=== PATIENT | female | born 1975 | race Caucasian/White ===

== ENCOUNTER 2016-12-19 18:06 | Emergency (ER) | payer SELFPAY ==
[~2016-12-19] VITALS: Ht 170.2 cm; Wt 82.0 kg
[~2016-12-19 18:06] MED LIST: DIAZ5 PO; DICY1TAB26 PO; DOXY100T PO; SULF1TAB47 PO; TRAM50 PO; Z.0.NO CURRENT MEDS; ZOFR4TAB3 PO
[2016-12-19 18:08] VITALS: BP 133/75; PULSE 60; RESP 20; TEMP 98.5; O2SAT 97
--- NOTE | 2016-12-19 19:22 | PD ---
Physical Exam Time Seen by Provider: 19:20 Narrative 41 y/o female w/ left flank pain, nauseas, dizziness, lightheadedness for one week. Urinary "pressure" endorsed as well. vss Seen at triage desk. Awaiting bed placement. Data Data Last Documented VS Vital Signs Date Time Temp Pulse Resp B/P Pulse Ox O2 Delivery O2 Flow Rate FiO2 12/19/16 18:08 98.5 60 20 133/75 97 Room Air [facility] Medical Record Reviewed: Yes Supervised Visit with SHAUN: No Joe Neal December 19, 2016 19:22
[2016-12-19 20:14] LABS: BACTERIA, URINE OCC /hpf; BLOOD, URINE NEG (NEG); GLUCOSE,URINE NEG (NEG); KETONE, URINE NEG (NEG); MUCUS URINE FEW /lpf (OCC); NITRITE,URINE NEG (NEG); PH, URINE 6.5 (5.0-8.5); SQUAMOUS EPITHELIAL CELL URINE 1 /hpf (0-5); URINE COLOR YELLOW (YELLW/STRAW)
[2016-12-19 20:17] LABS: COMMENT (UR) CULT NOT INDICATED; CULTURE IF INDICATED CULT NOT INDICATED
== END 2016-12-19 21:00 | disposition left against medical advice (07) ==
LOC: NED 18:06
DX: R10.9 Unspecified abdominal pain (principal); Z53.21 Procedure and treatment not carried out due to patient leaving prior to being seen by health care provider; R42 Dizziness and giddiness
CPT/HCPCS: 81001; 84703; 99283

== ENCOUNTER 2017-03-29 18:41 | Emergency (ER) | payer SELFPAY ==
[~2017-03-29] VITALS: Ht 165.1 cm; Wt 75.0 kg
[2017-03-29 18:42] VITALS: BP 174/78; PULSE 70; RESP 20; TEMP 98.7; O2SAT 100
--- NOTE | 2017-03-29 18:49 | PD ---
Physical Exam Date Seen by Provider: Mar 29, 2017 Time Seen by Provider: 18:48 Narrative 41 yo female here for possible bite to left leg. Going on since monday. Getting bigger and swelling. No injuries. Pain is mild. Vitals are stable in triage. Awaiting Bed placement. Data Data Last Documented VS Vital Signs Date Time Temp Pulse Resp B/P Pulse Ox O2 Delivery O2 Flow Rate FiO2 03/29/17 18:42 98.7 70 20 174/78 100 Room Air [facility] Medical Record Reviewed: Yes Supervised Visit with SHAUN: Cheo Neumann Mar 29, 2017 18:49
[2017-03-29] MEDS ORDERED: BACT800T5 PO (19:50)
--- NOTE | 2017-03-29 19:55 | PD ---
HPI Chief Complaint: Bite or Sting Time Seen by Provider: 19:52 Travel History International Travel<30 days: No Contact w/Intl Traveler<30days: No Traveled to known affect area: No History of Present Illness HPI 41-year-old white female presents with a area of redness and tenderness to the left anterior thigh over the last few days. It has become increasingly red and tender. No drainage. She denies any history of abscess in the past. She states that she's not sure whether this could've been an insect bite. She is taken some Benadryl for some itching. She denies any fever or chills. No nausea vomiting. She does note that she feels like her leg is somewhat swollen. Pain is mild. No alleviating factor PFSH Past Medical History Cardiovascular Problems: Yes ([place] X 1 2000) High Cholesterol: Yes Diminished Hearing: No Hypertension: Yes (NON TREATED) Immunizations Current: Yes Myocardial Infarction: Yes (8 YEARS AGO) ?: Not : 3 Para: 2 : 1 Ovarian Cysts: Yes Tubal Ligation: Yes Past Surgical History Section: Yes Gynecologic Surgery: Yes Social History Alcohol Use: Yes (WINE ON WEEKENDS) Tobacco Use: No Substance Use: Yes (POT) Allergies-Medications (Allergen,Severity, Reaction): Coded Allergies: Codeine (Verified Adverse Reaction, Mild, VOMITING, 03/29/17) THE PT TOLERATES LORTAB Dilaudid (Verified Adverse Reaction, Mild, VOMITING, 03/29/17) Reported Meds & Prescriptions Reported Meds & Active Scripts Active Bactrim DS (Sulfamethoxazole-Trimethoprim) 800-160 Mg Tab 1 Tab PO BID Review of Systems Except as stated in HPI: all other systems reviewed are Neg Physical Exam Narrative GENERAL: This is a well-nourished, well-developed patient, in no apparent distress. SKIN: The patient has a 1.5 1.5 cm area of erythema to the mid anterior left thigh. There is no fluctuance or pointing. HEAD: Atraumatic. Normocephalic. EYES: PERRL, EOMI, no discharge or injection. No scleral icterus. EARS: Clear NOSE: Nasal turbinates appear normal. THROAT: Mucosa pink and moist. Airway patent. NECK: Trachea midline. supple, moves head freely. LUNGS: Clear to auscultation. CV: Regular in rhythm. ABDOMEN: Soft nontender. EXT: No clubbing cyanosis or edema. Data Data Last Documented VS Vital Signs Date Time Temp Pulse Resp B/P Pulse Ox O2 Delivery O2 Flow Rate FiO2 03/29/17 18:42 98.7 70 20 174/78 100 Room Air Orders Tetanus/Diphtheria Tox Adult (Tetanus/Di (03/29/17 20:00) Sulfamet-Trimeth Ds 800-160 Mg (Bactrim (03/29/17 20:00) Diphenhydramine (Benadryl) (03/29/17 20:00) MDM Medical Decision Making Medical Screen Exam Complete: Yes Emergency Medical Condition: Yes Medical Record Reviewed: Yes Differential Diagnosis MDM: High Differential diagnoses: Abscess, folliculitis, cellulitis, lymphangitis, abrasion, contact dermatitis Narrative Course Patient is given Bactrim DS and Benadryl 50 mg by mouth. Tetanus immunization updated. This is left leg insect bite infection Diagnosis Primary Impression: Insect bite of left lower leg with infection Patient Instructions: General Instructions Departure Forms: Tests/Procedures, Work Release Special Instructions: No work 2 days. Additional Instructions: Rest. Elevation. keep clean and dry. Warm compresses. Benadryl 50 mg 4 times a day. Daily wound care with soap, water and Neosporin. Three Advil every 6 hours. Bactrim DS. Follow-up with a primary care doctor in one week. Return to the ER for any problems. Med/Other Pt SpecificInfo: Prescription(s) given, Wound Care Scripts Sulfamethoxazole-Trimethoprim (Bactrim DS)800-160 Mg Tab1 Tab PO BID #20 TAB Prov:Alex Solis MD 03/29/17 Disposition: 01 DISCHARGE HOME Condition: Stable Akash España Mar 29, 2017 19:55
[2017-03-29] MEDS ORDERED: diphenhydrAMINE HCL 50 MG CAP PO ONE (20:00)
[2017-03-29] MEDS ORDERED: TETANUS/DIPHTHERIA TOXOID ADULT 0.5 ML VIAL IM ONE (20:00)
[2017-03-29] MEDS ORDERED: SULFAMETHOXAZOLE-TRIMETHOPRIM DS 800-160 MG TAB PO ONE (20:00)
== END 2017-03-29 20:28 | disposition home or self-care (01) ==
LOC: NEPK 18:41
DX: S80.862A Insect bite (nonvenomous), left lower leg, initial encounter (principal); W57.XXXA Bitten or stung by nonvenomous insect and other nonvenomous arthropods, initial encounter; I25.2 Old myocardial infarction; I10 Essential (primary) hypertension; E78.00 Pure hypercholesterolemia, unspecified
CPT/HCPCS: 90471; 90714; 99283; Q0163

== ENCOUNTER 2017-07-21 18:31 | Emergency (ER) | payer SELFPAY ==
[~2017-07-21] VITALS: Ht 170.2 cm; Wt 79.5 kg
[~2017-07-21 18:31] MED LIST changes: +BACT800T5 PO; -DIAZ5 PO; -DICY1TAB26 PO; -DOXY100T PO; -SULF1TAB47 PO; -TRAM50 PO; -Z.0.NO CURRENT MEDS; -ZOFR4TAB3 PO
[2017-07-21 18:32] VITALS: BP 158/118; PULSE 81; RESP 20; TEMP 98.6; O2SAT 100
[2017-07-21] MEDS ORDERED: MORPHINE SULFATE 4 MG/ML INJ IV PUSH ONE (19:45)
[2017-07-21 19:58] LABS: AUTOMATED NEUTROPHIL # 7.5 TH/MM3 (1.8-7.7); BASOPHIL % 0.4 % (0.0-2.0); EOSINOPHIL # 0.2 TH/MM3 (0-0.4); EOSINOPHIL % 2.2 % (0.0-4.0); HEMATOCRIT 41.3 % (35.0-46.0); HEMO FLAGS DIFF FINAL; LYMPH % 22.4 % (9.0-44.0); LYMPHOCYTE # 2.5 TH/MM3 (1.0-4.8); MEAN CELL VOLUME 84.8 FL (80.0-100.0); MEAN CORPUSCULAR HEMOGLOBIN 29.1 PG (27.0-34.0); MEAN CORPUSCULAR HGB CONC 34.3 % (32.0-36.0); MONO % 6.7 % (0.0-8.0); NEUT % 68.3 % (16.0-70.0); PLATELET COUNT 388 TH/MM3 (150-450); RED BLOOD COUNT 4.87 MIL/MM3 (4.00-5.30); RED CELL DISTRIBUTION WIDTH 14.3 % (11.6-17.2)
[2017-07-21 20:08] LABS: ANION GAP 9 MEQ/L (5-15); AST (GOT) 12 U/L (15-37); BICARBONATE 24.3 MEQ/L (21.0-32.0); BLOOD UREA NITROGEN 10 MG/DL (7-18); CHLORIDE 107 MEQ/L (98-107); GLOMERULAR FILTRATION RATE 84 ML/MIN (>89); POTASSIUM 3.5 MEQ/L (3.5-5.1); SODIUM (NA) 140 MEQ/L (136-145)
[2017-07-21 20:09] LABS: ALT (GPT) 19 U/L (10-53)
[2017-07-21 20:13] LABS: ALKALINE PHOSPHATASE 67 U/L (45-117); BETA HCG QUANT LESS THAN 1 MIU/ML (0-5); TOTAL BILIRUBIN ADULT 0.4 MG/DL (0.2-1.0)
[2017-07-21] MEDS ORDERED: DIATRIZOATE MEGLUM/DIATRIZOATE SOD 9 ML CUP ONE (20:22)
[2017-07-21] MEDS ORDERED: KETOROLAC TROMETHAMINE 30 MG/ML (IVP) VIAL IV PUSH ONE (20:30)
--- NOTE | 2017-07-21 20:30 | PD ---
HPI Chief Complaint: Abdominal Pain Time Seen by Provider: 19:20 Travel History International Travel<30 days: No Contact w/Intl Traveler<30days: No Traveled to known affect area: No History of Present Illness HPI Patient is a 42-year-old female coming in complaining of right flank pain that began 2 days ago it is been constant. It is stabbing and radiating forward to the right lower quadrant.. she denies dysuria , she denies nausea or vomiting. Patient has had ovarian cyst in the past but this pain is different she says. She has no history of renal stones nor family history of kidney stones. No GB disease Hx . She has taken Motrin for the pain which did not relieve her symptoms she has not seen another doctor for this and she comes in holding her flank and leaning over standing up in the exam room when I come into the exam room [facility] Past Medical History Cardiovascular Problems: Yes ([place] X 1 2000) High Cholesterol: Yes Diminished Hearing: No Hypertension: Yes Immunizations Current: Yes Myocardial Infarction: Yes (2000) Influenza Vaccination: No ?: Not LMP: JUN 2017 : 3 Para: 2 : 1 Ovarian Cysts: Yes Tubal Ligation: Yes Past Surgical History Section: Yes Gynecologic Surgery: Yes Social History Alcohol Use: Yes (SOCIAL) Tobacco Use: No Substance Use: Yes (MARIJUANA) Allergies-Medications (Allergen,Severity, Reaction): Coded Allergies: codeine (Unverified Adverse Reaction, Mild, VOMITING, 04/04/17) THE PT TOLERATES LORTAB hydromorphone (Unverified Adverse Reaction, Mild, VOMITING, 04/04/17) Reported Meds & Prescriptions Reported Meds & Active Scripts Active No Active Prescriptions or Reported Medications Review of Systems Except as stated in HPI: all other systems reviewed are Neg Gastrointestinal: Positive: Abdominal Pain Genitourinary: Positive: Flank Pain (right lateral rib to back pain paraspinal to right lower rib) Physical Exam Narrative GENERAL: hold right lower back flank leaning over in pain SKIN: Warm and dry. HEAD: Atraumatic. Normocephalic. EYES: Pupils equal and round. No scleral icterus. No injection or drainage. ENT: No nasal bleeding or discharge. Mucous membranes pink and moist. NECK: Trachea midline. No JVD. CARDIOVASCULAR: Regular rate and rhythm. RESPIRATORY: No accessory muscle use. Clear to auscultation. Breath sounds equal bilaterally. tenderness to right lower ribs area lateral , No FLANK PAIN GASTROINTESTINAL: Abdomen right lateral lower ribs area tenderness no vesicles seen no hematoma nor bruise on skin + tender, nondistended. Hepatic and splenic margins not palpable. MUSCULOSKELETAL: para lumbral spine muscle tender not CVA area ..Extremities without clubbing, cyanosis, or edema. No obvious deformities. NEUROLOGICAL: Awake and alert. No obvious cranial nerve deficits. Motor grossly within normal limits. Five out of 5 muscle strength in the arms and legs. Normal speech. PSYCHIATRIC: Appropriate mood and affect; insight and judgment normal. Data Data Last Documented VS Vital Signs Date Time Temp Pulse Resp B/P (MAP) Pulse Ox O2 Delivery O2 Flow Rate FiO2 07/21/17 21:54 07/21/17 21:35 75 16 99 Room Air 07/21/17 18:[address] Abd/Pel W Iv Contrast(Rout) (07/21/17 ) Complete Blood Count With Diff (07/21/17 19:33) Comprehensive Metabolic Panel (07/21/17 19:33) Beta Hcg (Quant/Titer) (07/21/17 19:33) Lipase (07/21/17 19:33) Morphine Inj (Morphine Inj) (07/21/17 19:45) Oral Contrast - Adult (07/21/17 19:42) Ketorolac Inj (Toradol Inj) (07/21/17 20:30) Diatrizoate Liq ( Gastroview Liq) (07/21/17 20:22) Iohexol 350 Inj (Omnipaque 350 Inj) (07/21/17 20:52) Ed Discharge Order (07/21/17 21:30) Pantoprazole Inj (Protonix Inj) (07/21/17 21:45) Labs Laboratory Tests Test 07/21/17 19:40 White Blood Count 11.0 TH/MM3 Red Blood Count 4.87 MIL/MM3 Hemoglobin 14.2 GM/DL Hematocrit 41.3 % Mean Corpuscular Volume 84.8 FL Mean Corpuscular Hemoglobin 29.1 PG Mean Corpuscular Hemoglobin Concent 34.3 % Red Cell Distribution Width 14.3 % Platelet Count 388 TH/MM3 Mean Platelet Volume 7.6 FL Neutrophils (%) (Auto) 68.3 % Lymphocytes (%) (Auto) 22.4 % Monocytes (%) (Auto) 6.7 % Eosinophils (%) (Auto) 2.2 % Basophils (%) (Auto) 0.4 % Neutrophils # (Auto) 7.5 TH/MM3 Lymphocytes # (Auto) 2.5 TH/MM3 Monocytes # (Auto) 0.7 TH/MM3 Eosinophils # (Auto) 0.2 TH/MM3 Basophils # (Auto) 0.0 TH/MM3 CBC Comment DIFF FINAL Differential Comment Blood Urea Nitrogen 10 MG/DL Creatinine 0.75 MG/DL Random Glucose 88 MG/DL Total Protein 8.4 GM/DL Albumin 4.5 GM/DL Calcium Level 9.1 MG/DL Alkaline Phosphatase 67 U/L Aspartate Amino Transf (AST/SGOT) 12 U/L Alanine Aminotransferase (ALT/SGPT) 19 U/L Total Bilirubin 0.4 MG/DL Sodium Level 140 MEQ/L Potassium Level 3.5 MEQ/L Chloride Level 107 MEQ/L Carbon Dioxide Level 24.3 MEQ/L Anion Gap 9 MEQ/L Estimat Glomerular Filtration Rate 84 ML/MIN Lipase 172 U/L Human Chorionic Gonadotropin, Quant LESS THAN 1 MIU/ML MDM Medical Decision Making Medical Screen Exam Complete: Yes Emergency Medical Condition: Yes Differential Diagnosis renal colic vs muscle spasm vs ovarian pain ribs contusion vs costochondritis or dermatomal neuralgia Narrative Course IV fluid toradol and morphine pt had no relief from pain in ER CT then performed and same findings on prior 3 CT of abdo over last 6 yrs stable cyst in liver normal appendix .. pt discharge safely for further eval of pain as outpt. No further emergent work up warranted, The pain was never adnexal no U/S indicated Diagnosis Primary Impression: Abdominal pain Patient Instructions: Abdominal Pain (ED), General Instructions Scripts No Active Prescriptions or Reported Meds Vitaliy Pham MD Jul 21, 2017 20:30
[2017-07-21] MEDS ORDERED: IOHEXOL 350 MG/ML 10 ML VIAL (for RAD DIAG) IVCONTRAST ONE (20:52)
--- NOTE | 2017-07-21 21:18 | RADRPT ---
EXAM DATE/TIME: 07/21/2017 20:47 [facility] COMPARISON: No previous studies available for comparison. INDICATIONS : Right lower quadrant pain radiating to lower back x1 day. IV CONTRAST: 95 cc Omnipaque 350 (iohexol) IV ORAL CONTRAST: Prescribed oral contrast ingested. RADIATION DOSE: 12.59 CTDIvol (mGy) MEDICAL HISTORY : Cardiovascular disease. Hypertension. SURGICAL HISTORY : Tubal ligation. ENCOUNTER: Initial ACUITY: 1 day PAIN SCALE: 6/10 LOCATION: Right lower quadrant TECHNIQUE: Volumetric scanning of the abdomen and pelvis was performed. Using automated exposure control and ad justment of the mA and/or kV according to patient size, radiation dose was kept as low as reasonably achievable to obtain optimal diagnostic quality images. DICOM format image data is available electro nically for review and comparison. FINDINGS: One bases are clear. Several small hepatic cysts. Spleen, adrenals, kidneys and pancreas unremarkable . No calcified gallstones or ductal dilatation. Appendix is normal. No pelvic mass is a free fluid. No bowel obstruction or free air. CONCLUSION: 1. No acute findings. Small hepatic cysts stable since 2015. Normal appendix. No inflammatory changes or obstructive uropathy. Akash Brennan MD on July 21, 2017 at 21:13 Board Certified Radiologist. This report was verified electronically.
[2017-07-21 21:35] VITALS: BP 133/74; PULSE 75; RESP 16; O2SAT 99
[2017-07-21] MEDS ORDERED: PANTOPRAZOLE SODIUM 40 MG VIAL IV PUSH ONE (21:45)
== END 2017-07-21 21:59 | disposition home or self-care (01) ==
LOC: NEPE 18:31
DX: R10.31 Right lower quadrant pain (principal); E78.00 Pure hypercholesterolemia, unspecified; I10 Essential (primary) hypertension; I25.2 Old myocardial infarction; Z88.5 Allergy status to narcotic agent
CPT/HCPCS: 74177; 80053; 83690; 84702; 85025; 96374; 96375; 99285; C9113; J1885; J2270; Q9963; Q9967

== ENCOUNTER 2017-10-10 14:18 | Inpatient (IN) | payer SELFPAY ==
[2017-10-10] VITALS (7 sets, daily range): BP systolic 118–212; BP diastolic 69–97; PULSE 56–70; RESP 16–20; TEMP 98.4–98.7; O2SAT 95–100
[~2017-10-10] VITALS: Ht 170.2 cm; Wt 77.9 kg
--- NOTE | 2017-10-10 15:04 | RADRPT ---
EXAM DATE/TIME: 10/10/2017 14:36 [facility] COMPARISON: No previous studies available for comparison. INDICATIONS : Chest pain today. MEDICAL HISTORY : Myocardial infarction. SURGICAL HISTORY : None. ENCOUNTER: Initial ACUITY: 1 day PAIN SCORE: 10/10 LOCATION: Bilateral chest FINDINGS: PA and lateral views of the chest demonstrate the lungs to be symmetrically aerated without evidence of mass, infiltrate or effusion. The cardiomediastinal contours are unremarkable. Mild curvature of the midthoracic spine convex towards the right.. CONCLUSION: The lungs are clear. Anselmo Kinney MD on October 10, 2017 at 15:02 Board Certified Radiologist. This report was verified electronically.
[2017-10-10 15:35] LABS: AUTOMATED NEUTROPHIL # 6.4 TH/MM3 (1.8-7.7); BASOPHIL # 0.1 TH/MM3 (0-0.2); BASOPHIL % 0.5 % (0.0-2.0); EOSINOPHIL # 0.1 TH/MM3 (0-0.4); EOSINOPHIL % 1.4 % (0.0-4.0); HEMATOCRIT 43.1 % (35.0-46.0); HEMOGLOBIN 14.8 GM/DL (11.6-15.3); LYMPH % 29.1 % (9.0-44.0); LYMPHOCYTE # 3.1 TH/MM3 (1.0-4.8); MEAN CELL VOLUME 84.1 FL (80.0-100.0); MEAN CORPUSCULAR HEMOGLOBIN 28.9 PG (27.0-34.0); MEAN CORPUSCULAR HGB CONC 34.4 % (32.0-36.0); MEAN PLATELET VOLUME 7.9 FL (7.0-11.0); MONO % 8.6 % (0.0-8.0); MONOCYTE # 0.9 TH/MM3 (0-0.9); NEUT % 60.4 % (16.0-70.0); PLATELET COUNT 386 TH/MM3 (150-450); RED BLOOD COUNT 5.12 MIL/MM3 (4.00-5.30); RED CELL DISTRIBUTION WIDTH 14.9 % (11.6-17.2); WHITE BLOOD COUNT 10.6 TH/MM3 (4.0-11.0)
[2017-10-10 15:53] LABS: BICARBONATE 22.8 MEQ/L (21.0-32.0); CALCIUM 9.2 MG/DL (8.5-10.1); CREATININE 0.67 MG/DL (0.50-1.00); MAGNESIUM 2.4 MG/DL (1.5-2.5)
[2017-10-10 15:57] LABS: TROPONIN I 0.22 NG/ML (0.02-0.05)
[2017-10-10 15:59] LABS: PROTHROMBIN TIME - PATIENT 10.6 SEC (9.8-11.6)
[2017-10-10] MEDS ORDERED: ASPIRIN 81 MG CHEW TAB ONE (16:19)
[2017-10-10] MEDS ORDERED: NITROGLYCERIN 0.4 MG SL 25 TABS/BTL SL ONE (16:20)
--- NOTE | 2017-10-10 16:21 | PD ---
HPI Chief Complaint: Chest Pain Time Seen by Provider: 16:08 Travel History International Travel<30 days: No Contact w/Intl Traveler<30days: No Traveled to known affect area: No History of Present Illness HPI Patient is a 42-year-old female presents emergency Department with chest tightness in the left side of her chest radiating to the right jaw and down her left shoulder since about 8:00 this morning. Patient states the pain worsened about 2:00. She states she was hospitalized for this in the past and was told that her new medication interactive with her blood pressure and that's all this was. She states she's never had a cardiac catheterization but did have a stress test some years ago at this institution. She states the pain is severe, gradually worsening, she never had pain quite this severe before. She denies any shortness of breath or vomiting but does endorse some mild nausea. Does not have a carpenter mold who follows her, does not have a primary care physician. Is a nonsmoker. PFSH Past Medical History Cardiovascular Problems: Yes ([place] X 1 2000) High Cholesterol: Yes Diminished Hearing: No Hypertension: Yes Immunizations Current: Yes Myocardial Infarction: Yes (2000) ?: Not LMP: 09/11/2017 : 3 Para: 2 : 1 Ovarian Cysts: Yes Tubal Ligation: Yes Past Surgical History Section: Yes Gynecologic Surgery: Yes Social History Alcohol Use: Yes (SOCIAL) Tobacco Use: No Substance Use: Yes (MARIJUANA) Allergies-Medications (Allergen,Severity, Reaction): Coded Allergies: codeine (Unverified Adverse Reaction, Mild, VOMITING, 04/04/17) THE PT TOLERATES LORTAB hydromorphone (Unverified Adverse Reaction, Mild, VOMITING, 04/04/17) Reported Meds & Prescriptions Reported Meds & Active Scripts Active No Active Prescriptions or Reported Medications Review of Systems Except as stated in HPI: all other systems reviewed are Neg Physical Exam Narrative GENERAL: Well-developed, well-nourished, appears quite uncomfortable. SKIN: Focused skin assessment warm/dry. Diaphoretic. HEAD: Atraumatic. Normocephalic. EYES: Pupils equal and round. No scleral icterus. No injection or drainage. ENT: No nasal bleeding or discharge. Mucous membranes pink and moist. NECK: Trachea midline. No JVD. CARDIOVASCULAR: Regular rate and rhythm no murmurs gallops or rubs. 2+ bilateral equal pulses in all 4 extremity's.. No murmur appreciated. RESPIRATORY: No accessory muscle use. Clear to auscultation. Breath sounds equal bilaterally. GASTROINTESTINAL: Abdomen soft, non-tender, nondistended. Hepatic and splenic margins not palpable. MUSCULOSKELETAL: No obvious deformities. No clubbing. No cyanosis. No edema. NEUROLOGICAL: Awake and alert. No obvious cranial nerve deficits. Motor grossly within normal limits. Normal speech. PSYCHIATRIC: Appropriate mood and affect; insight and judgment normal. Data Data Last Documented VS Vital Signs Date Time Temp Pulse Resp B/P (MAP) Pulse Ox O2 Delivery O2 Flow Rate FiO2 10/10/17 17:14 10/10/17 17:13 60 18 100 Nasal Cannula 2.00 10/10/17 14:19 98.4 Orders Orders Electrocardiogram (10/10/17 14:23) Basic Metabolic Panel (Bmp) (10/10/17 14:23) Ckmb (Isoenzyme) Profile (10/10/17 14:23) Complete Blood Count With Diff (10/10/17 14:23) Magnesium (Mg) (10/10/17 14:23) Prothrombin Time / Inr (Pt) (10/10/17 14:23) Act Partial Throm Time (Ptt) (10/10/17 14:23) Troponin I (10/10/17 14:23) Chest, Pa & Lat (10/10/17 14:23) Ed Urine Pregnancytest Poc (10/10/17 14:23) Aspirin Chew (Aspirin Chew) (10/10/17 16:30) Chest, Single Ap (10/10/17 ) Nitroglycerin Sl (Nitrostat Sl) (10/10/17 16:30) Aspirin Chew (Aspirin Chew) (10/10/17 16:19) Nitroglycerin Sl (Nitrostat Sl) (10/10/17 16:20) Troponin I (10/10/17 16:22) Resp Oxygen Nasal Cannula (10/10/17 ) Ondansetron Inj (Zofran Inj) (10/10/17 16:30) Morphine Inj (Morphine Inj) (10/10/17 16:37) Morphine Inj (Morphine Inj) (10/10/17 16:45) Cardiac Catheterization (10/10/17 ) Ed Urine Pregnancytest Poc (10/10/17 17:00) Heparin Inj (Heparin Inj) (10/10/17 17:15) Heparin-Ns/Pf Flush Bag (Heparin-Ns/Pf F (10/10/17 17:25) Midazolam Inj (Versed Inj) (10/10/17 17:26) Fentanyl Inj (Fentanyl Inj) (10/10/17 17:26) Verapamil Inj (Isoptin Inj) (10/10/17 17:26) Heparin Inj (Heparin Inj) (10/10/17 17:26) Nitroglycerin Inj (Nitroglycerin Inj) (10/10/17 17:26) Admit To Inpatient (10/10/17 ) Vital Signs (Adult) Q4H (10/10/17 17:39) Activity Oob With Assistance (10/10/17 17:39) Bed Rubber / Telemetry .CONTINUOUS (10/10/17 17:39) Diet Heart Healthy (10/10/17 Dinner) Sodium Chloride 0.9% Flush (Ns Flush) (10/10/17 17:45) Sodium Chloride 0.9% Flush (Ns Flush) (10/10/17 21:00) Basic Metabolic Panel (Bmp) (10/11/17 06:00) Complete Blood Count With Diff (10/11/17 06:00) Case Management Consult (10/10/17 17:39) Naloxone Inj (Narcan Inj) (10/10/17 17:45) Inpatient Certification (10/10/17 ) Admit Order (Ed Use Only) (10/10/17 ) Consult Cardiology (10/10/17 ) Labs Laboratory Tests Test 10/10/17 14:25 10/10/17 16:35 White Blood Count 10.6 TH/MM3 Red Blood Count 5.12 MIL/MM3 Hemoglobin 14.8 GM/DL Hematocrit 43.1 % Mean Corpuscular Volume 84.1 FL Mean Corpuscular Hemoglobin 28.9 PG Mean Corpuscular Hemoglobin Concent 34.4 % Red Cell Distribution Width 14.9 % Platelet Count 386 TH/MM3 Mean Platelet Volume 7.9 FL Neutrophils (%) (Auto) 60.4 % Lymphocytes (%) (Auto) 29.1 % Monocytes (%) (Auto) 8.6 % Eosinophils (%) (Auto) 1.4 % Basophils (%) (Auto) 0.5 % Neutrophils # (Auto) 6.4 TH/MM3 Lymphocytes # (Auto) 3.1 TH/MM3 Monocytes # (Auto) 0.9 TH/MM3 Eosinophils # (Auto) 0.1 TH/MM3 Basophils # (Auto) 0.1 TH/MM3 CBC Comment DIFF FINAL Differential Comment Prothrombin Time 10.6 SEC Prothromb Time International Ratio 1.0 RATIO Activated Partial Thromboplast Time 31.3 SEC Blood Urea Nitrogen 9 MG/DL Creatinine 0.67 MG/DL Random Glucose 93 MG/DL Calcium Level 9.2 MG/DL Magnesium Level 2.4 MG/DL Sodium Level 138 MEQ/L Potassium Level 3.7 MEQ/L Chloride Level 106 MEQ/L Carbon Dioxide Level 22.8 MEQ/L Anion Gap 9 MEQ/L Estimat Glomerular Filtration Rate 96 ML/MIN Total Creatine Kinase 76 U/L Troponin I 0.22 NG/ML 0.66 NG/ML MDM Medical Decision Making Medical Screen Exam Complete: Yes Emergency Medical Condition: Yes Differential Diagnosis ACS, AMI, NSTEMI, Dissection unlikely. Narrative Course Patient continued chest pain and some diaphoresis in the emergency department, morphine given and she started to feel slightly better, troponin is elevated, has some nonspecific T-wave changes. The patient was discussed with Dr. Rojas for possible urgent catheterization this afternoon and he is agreeable , the patient was consented by him and he was taken to the [facility]. Critical Care Narrative Aggregate critical care time was 35 minutes. Time to perform other separately billable procedures was not included in the critical care time. My time did not include minutes spent treating any other patients simultaneously or on activities that did not directly contribute to the patient's treatment. The services I provided to this patient were to treat and/or prevent clinically significant deterioration that could result in: disability and organ failure I provided critical care services requiring my management, as noted below: Chart data review, documentation time, medication orders and management, vital sign assessments/reviewing monitor data, ordering and reviewing lab tests, ordering and interpreting/reviewing x-rays and diagnostic studies, care of the patient and discussion of the patient with the admitting physicians. Diagnosis Primary Impression: Acute coronary syndrome Admitting Information Admitting Physician Requests: Admit Scripts No Active Prescriptions or Reported Meds Condition: Josiah Fernandez MD Oct 10, 2017 16:21
[2017-10-10] MEDS ORDERED: NITROGLYCERIN 0.4 MG SL 25 TABS/BTL SL SCH (16:30)
[2017-10-10] MEDS ORDERED: ASPIRIN 81 MG CHEW TAB CHEW ONE (16:30)
[2017-10-10] MEDS ORDERED: ONDANSETRON HCL 4 MG/2 ML VIAL IV PUSH ONE (16:30)
[2017-10-10] MEDS ORDERED: MORPHINE SULFATE 4 MG/ML INJ ONE (16:37)
[2017-10-10] MEDS ORDERED: HEPARIN SODIUM - IV 2,000 UNITS/2 ML VIAL IV ONE (16:45)
[2017-10-10] MEDS ORDERED: MORPHINE SULFATE 2 MG/ML INJ IV PUSH ONE (16:45)
[2017-10-10] MEDS ORDERED: HEPARIN SODIUM - IV 10,000 UNITS/10 ML VIAL IV ONE (17:15)
--- NOTE | 2017-10-10 17:16 | RADRPT ---
EXAM DATE/TIME: 10/10/2017 16:33 [facility] COMPARISON: No previous studies available for comparison. INDICATIONS : Chest pains. MEDICAL HISTORY : None. SURGICAL HISTORY : None. ENCOUNTER: Initial ACUITY: 1 day PAIN SCORE: 0/10 LOCATION: Bilateral chest FINDINGS: A single view of the chest demonstrates the lungs to be symmetrically aerated without evidence of mas s, infiltrate or effusion. The cardiomediastinal contours are unremarkable. Osseous structures are intact. CONCLUSION: The lungs are clear. Anselmo Kinney MD on October 10, 2017 at 17:14 Board Certified Radiologist. This report was verified electronically.
[2017-10-10] MEDS ORDERED: HEPARIN-NS/PF FLUSH BAG 1,000 ML IV FLUSH ONE (17:25)
[2017-10-10] MEDS ORDERED: NITROGLYCERIN INJ 5 ML ONE (17:26)
[2017-10-10] MEDS ORDERED: HEPARIN SODIUM - IV 10,000 UNITS/10 ML VIAL ONE (17:26)
[2017-10-10] MEDS ORDERED: VERAPAMIL HCL 5 MG/2 ML VIAL ONE (17:26)
[2017-10-10] MEDS ORDERED: MIDAZOLAM HCL 2 MG/2 ML VIAL ONE (17:26)
[2017-10-10] MEDS ORDERED: NALOXONE HCL 0.4 MG/ML AMP IV PUSH PRN (17:45)
[2017-10-10] MEDS ORDERED: SODIUM CHLORIDE 0.9% FLUSH 10 ML FLUSH IV FLUSH PRN (17:45)
[2017-10-10] MEDS ORDERED: PHENYLEPHRINE HCL 10 MG/ML VIAL ONE (18:14)
[2017-10-10] MEDS ORDERED: CLOPIDOGREL 300 MG TAB ONE (18:53)
--- NOTE | 2017-10-10 19:12 | CATHPROC ---
[facility] HIS Report Study Information Study Number Admission Scheduled Start Study Start [id number] Oct 10 2017 2:18PM 10/10/2017 Oct 10 2017 5:00PM [place] [facility] Cardiac Catheterization Admit Source Facility Department Emergency department [facility] - Warehouse Order Selector Physician and Clinical Staff Initial Chris Mendieta Injection Molding Machine Setter Katey Kang RN Injection Molding Machine SetterMartina Cummings RN Other cathlab, cathlab Recorder [place] Barboza RCIS(BS) Scrub Bella Schneider RT(R) (BS) Procedures Performed Procedure Location (Site) Vessel Name Coronary Angiograms LCA Left Coronary Coronary Angiograms RCA Right Coronary Drug Eluting Inflatio CIRC Mid CIRC Drug Eluting Inflatio RCA Mid Right Coronary L Heart Cath PTCA CIRC Mid CIRC PTCA RCA Mid Right Coronary Wire insertion Radial (right) Radial Art. Equipment Time Welding Technician Description Size Mfg Part Number Used/Scraped WIRE, BALANCE MIDDLEWEIGHT [id number] 17:50 [employer] 190CM Used 190CM *[id number] WIRE, BALANCE MIDDLEWEIGHT [id number] 18:21 [employer] 190CM Used 190CM *[id number] TRANSDUCER, TRUWAVE [id number] 17:13 CASTILLO CAMPBELL * Used W/STOCKCOCK *[id number] BALLOON, 2.25 [place] [id number] 18:25 [employer] 2.25 6MM Used [facility] MR *[id number] [phone] *[id number] *[id number] 17:13 [employer] PACK, CCL CUSTOM * Used *[id number] 17:13 [email or web address] SUPPORT, ARTERIAL ADULT 31659 *[id number] Used [id number] 17:59 [employer] BALLOON, 2.0 X 10MM EUPHORA 10MM Used *[id number] BALLOON, 2.25 X 8MM NC [id number] 18:11 [employer] 8MM Used EUPHORA *[id number] BALLOON, 3.0 X 8MM NC [id number] 18:53 [employer] 8MM Used EUPHORA *[id number] 17:43 [employer] JL 3.5 DXTERITY CATHETER FR 5 Used *[id number] 18:07 [employer] STENT, 2.25 12MM BELL 2.25 12MM Used *[id number] [id number] 18:50 [employer] STENT, 3.0 12MM BELL 3.0 12MM Used *[id number] 17:49 [employer]/AVE EBU 3.5 Z2 GUIDE CATHETER FR 6 Used *1057240 [id number] 17:49 [employer] 30 VANDANA INDEFLATOR Used *[id number] BAND, RADIAL COMPRESSION TR [id number] 18:57 [employer] 24CM Used SHORT 24 *4301669 [id number] 17:13 [employer] WIRE, EXCHANGE 260CM 3MMJ 260CM Used *3387987 [id number] 17:13 NAMIC MANIFOLD, 4 PORT * Used *[id number] 17:13 NYCOMED OMNIPAQUE, 350 MG, 150ML 150ML [id number] Used [id number] 17:13 [employer] BLANKET,WARM AIR CCL * Used *[id number] SHEATH, FR6 TRANSRADIAL [id number] 17:13 [employer] FR 6 Used SLENDER 10CM *[id number] Equipment Model, Serial, Lot Number and Expiration Data Description Model Number Serial Number Lot Number Expiration Date BALLOON, 2.25 6MM NC QUANTUM [id number] 01-19-2020 APEX MR STENT, 2.25 12MM BELL [id number] 06-17-2019 STENT, 3.0 12MM BELL [id number] 04-12-2019 History: Allergies Allergy Reaction codeine VOMITING Dilaudid VOMITING hydromorphone VOMITING History: Risk Factors Family History of Hypertension Dyslipidemia Previous OR Previous Heart Failure Premature CAD Yes Yes Yes Yes No Prior Valve Prior PCI Prior CABG Surgery No No No Cerebrovascular Peripheral Artery Chronic Lung On Dialysis Diabetes Disease Disease Disease No No No No No History: Symptoms/Diagnosis Selection Items Chest pain History: Stress Tests Stress or Imaging Studies Performed Yes Standard Exercise Stress Test No Stress Echo No Stress Test SPECT Stress Test SPECT Result Stress Test SPECT Ischemia Risk/Extent Yes Positive Unavailable Stress Test CMR No Cardiac CTA Coronary Calcium Score No No History: Other Disease Selection Items HTN History: Other Current Smoker No Labs Hgb (g/dl) Hct (%) RBC (MIL/MM3) WBC (l/cumm) Platelets (thousands) 11.60-17.00 35.00-51.00 4.00-5.90 4.00-11.00 150.00-450.00 14.8 43.1 5.1 10.6 386 Glucose (mg/dl) BUN (mg/dl) Creatinine (mg/dl) BUN:Creatinine (1:x) 74.00-106.00 7.00-18.00 0.50-1.30 10.00-20.00 93 9 0.6 15 Na (meq/l) K (meq/l) Cl (meq/l) CO2 (mmol/L) Ca (mg/dl) 136.00-145.00 3.50-5.10 98.00-107.00 21.00-32.00 8.50-10.10 138 3.7 106 22.8 9.2 PT (sec) PTT (sec) INR (PTT:PT) 9.80-11.60 24.30-30.10 0.90-1.10 10.6 31.3 1 Troponin I (ng/ml) CPK (u/l) CPK-MB (ng/ML) 0.02-0.05 26.00-308.00 0.50-3.60 0.22 76 Not Drawn Medication Medication Total Dose (Bolus/Oral) Medication Total Dosage/Unit 1% XYLOCAINE 2 mL FENTANYL 25 mcg HEPARIN 6800 units NTG (IC) 150 mcg OXYGEN 2 l/min PLAVIX 600 mg RADIAL COCKTAIL 5 mL (Bolus) VERSED 0.5 mg Medications (Bolus/Oral) Medication Time Given Dosage/Unit Administered By Reason OXYGEN 10/10/2017 5:30:00 PM 2 l/min Katey Kang 2 l/min OXYGEN given in lab by Katey Kang RN via Nasal. VERSED 10/10/2017 5:36:23 PM 0.5 mg Katey Kang 0.5 mg VERSED given in lab by Katey Kang, MARGARITA in Left Antecubital via Peripheral IV. Ordered by Chris Romero FENTANYL 10/10/2017 5:36:33 PM 25 mcg Katey Kang 25 mcg FENTANYL given in lab by Katey Kang, MARGARITA in Left Antecubital via Peripheral IV. Ordered by Chris Rojas 1% XYLOCAINE 10/10/2017 5:36:40 PM 2 mL Chris Rojas 2 mL 1% XYLOCAINE given in lab by Chris Rojas in Right Radial via Subcutaneous. Ntg 200mcg Verapamil 2.5mg Heparin RADIAL COCKTAIL 10/10/2017 5:38:01 PM 5 mL (Bolus) Chris Rojas 3000U 5 mL (Bolus) RADIAL COCKTAIL given in lab by Chris Rojas in Right Radial via Radial. Using [S olution Name]. Reason: Ntg 200mcg Verapamil 2.5mg Heparin 3200U. HEPARIN 10/10/2017 5:50:23 PM 4800 units Katey Kang 4800 units HEPARIN given in lab by Katey Kang RN in Left Antecubital via Peripheral IV. Ordered by Chris Rojas. HEPARIN 10/10/2017 6:08:40 PM 1000 units Katey Kang 1000 units HEPARIN given in lab by Katey Kang RN in Left Antecubital via Peripheral IV. Ordered by Chris Rojas. NTG (IC) 10/10/2017 6:13:57 PM 150 mcg Chris Rojas 150 mcg NTG (IC) given in lab by Chris Rojas via Intra-coronary. HEPARIN 10/10/2017 6:45:38 PM 1000 units Katey Kang 1000 units HEPARIN given in lab by Katey Kang RN in Left Antecubital via Peripheral IV. Ordered by Chris Rojas. PLAVIX 10/10/2017 7:10:10 PM 600 mg Katey Kang 600 mg PLAVIX given in lab by Katey Kang RN via Oral. Ordered by Chris Rojas Initial Case Assessment Cardiovascular HR Rhythm NIBP Chest Pain 62 nsr 143/82 6 Edema Present Skin color Skin None Normal Warm Dry Circulatory - Right Pulses Dorsalis Pedis Femoral Radial 3 3 2 Scale (0,1,2,3,4,d) Circulatory - Left Pulses Dorsalis Pedis Femoral Radial 3 3 Scale (0,1,2,3,4,d) Neurological State Oriented to time-place- Alert Moves all extremities person Respiration - General Respiration Rate SpO2 (%) (B/min) 16 100 Final Case Assessment Cardiovascular HR Rhythm NIBP Chest Pain 72 nsr 129/76 6 Edema Present Skin color Skin None Normal Warm Dry Circulatory - Right Pulses Dorsalis Pedis Femoral Radial 3 3 2 Scale (0,1,2,3,4,d) Circulatory - Left Pulses Dorsalis Pedis Femoral Radial 3 3 Scale (0,1,2,3,4,d) Neurological State Oriented to time-place- Alert Moves all extremities person Respiration - General Respiration Rate SpO2 (%) (B/min) 16 100 Chronological Log Time Study Chronological Log 17:15:53 Patient arrived via Bed. 17:15:53 Patient Name, D.O.B, / Armband Verified By R.N. 17:15:54 Consent signed by the physician and the patient and verified by the Warehouse Order Selector staff. 17:15:55 Pre-op and post- op instructions given; patient acknowledges understanding of instructions. 17:15:56 Verbal Stimulation=2 Physical Stimulation=2 Airway=2 Respiration=2 TOTAL=8. (0=absent, 1=li mited, 2=present) 17:15:57 Presedation assessment performed by Warehouse Order Selector RN. 17:15:57 Allens test performed on the right radial and ulnar artery. POSITIVE. 17:15:59 Immediate Presedation assesment performed by physician. 17:16:00 Patient has been NPO for More than 6Hrs. 17:16:00 Skin Breakdown- none per patient 17:16:02 Patient Warmer Placed on the Table. 17:16:02 Vannessa Prominences Protected 17:16:04 A # 20 IV was noted in the Antecubital (left). Grade = 0 17:16:04 A # 20 IV was noted in the Antecubital (right). Grade = 0 17:16:06 History and physical on the chart or being dictated. Vitals capture started with the following parameters, Patient=Adult, Interval=5 min, Initial Pr tuyifp=307 mmHg, 17:20:25 Deflation Rate=5 mmHg, Cuff placed on Left Arm 17:21:01 EJ=276 bpm, DZOF=676/79 mmhg, SpO2=93.0 %, Resp=16 B/min, Pain=6, Jayce=10, Merrill=2 17:26:02 HR=65 bpm, PVBG=762/82 mmhg, NcI6=561.0 %, Resp=20 B/min, Pain=6, Jayce=10, Merrill=2 Assessment: Initial Case, HR=62 BPM, Rhythm=nsr, OCZN=684/82 mmhg, Chest Pain=6, Edema=None, Co kai=Normal, Skin = Warm, Dry Right Pulses: Jorge L Ped=3, Femoral=3, Radial=2 17:26:30 Left Pulses: Jorge L Ped=3, Femoral=3 Neurological: State=Alert, Ox3, RODRIGUEZ Respiration: Resp=16 B/min, CtW0=695 % 17::32 Right Radial and groin(s) prepped with 2% chlorhexidine, and draped after a 3 min. waiting time. 17:28:20 MD paged :: Pressure channel 1 zeroed. 17:28:54 Reference ECG taken 17:30:00 2 l/min OXYGEN given in lab by Katey Kang, RN via Nasal. 17:31:01 HR=62 bpm, QPPX=681/83 mmhg, BaD8=471.0 %, Resp=12 B/min, Pain=6, Jayce=10, Merrill=2 17:32:38 MD arrived. 17:32:41 Contrast Scanned ::42 Immediate Presedation assesment performed by physician. Time Out. Correct patient, correct procedure, correct physician, power injector not loaded with contrast with surgical 17:35:55 team present. Time Out Concurred by MD and individual staff in procedure. 17:36:00 HR=62 bpm, UXSZ=082/86 mmhg, DfD0=656.0 %, Resp=8 B/min, Pain=6, Jayce=10, Merrill=2 17:36:00 Case Start 17:36:01 Verbal Stimulation=2 Physical Stimulation=2 Airway=2 Respiration=2 TOTAL=8. (0=absent, 1=li mited, 2=present) 0.5 mg VERSED given in lab by Katey Kang, RN in Left Antecubital via Peripheral IV. Ordere d by Chris Rojas 17:36:23 G. 25 mcg FENTANYL given in lab by Katey Kang, MARGARITA in Left Antecubital via Peripheral IV. Orde red by Bob 17:36:33 Chris Quintanilla. 17:36:40 2 mL 1% XYLOCAINE given in lab by Chris Rojas in Right Radial via Subcutaneous. 17:37:42 Access site was Right Radial Artery. A SHEATH, FR6 TRANSRADIAL SLENDER 10CM FR 6 was advanced into the Radial (right) using the Perc utaneous 17:37:53 technique. 5 mL (Bolus) RADIAL COCKTAIL given in lab by Chris Rojas in Right Radial via Radial. Us ing [Solution Name]. 17:38:01 Reason: Ntg 200mcg Verapamil 2.5mg Heparin 3200U. A JR 4.0 INFINITI CATHETER FR 5 was advanced over a wire. OMNIPAQUE, 350 MG, 150ML 150ML was us ed for 17:38:10 injections. Recorded Pressure: LV, HR=68, Condition=Condition 1 17:40:46 (Left Ventricle) LV 116/7/14 17:41:03 HR=65 bpm, ODWE=212/79 mmhg, EgA8=535.0 %, Resp=9 B/min, Pain=6, Jayce=10, Merrill=2 Recorded Pressure: LV, Ao, HR=66, Condition=Condition 1 17:41:07 (Left Ventricle) LV 107/6/12, (Aorta) Ao 96/66/80 Recorded Pressure: Ao, HR=65, Condition=Condition 1 17:41:43 (Aorta) Ao 110/72/90 17:42:15 The RCA was injected and visualized at various angles. OMNIPAQUE, 350 MG, 150ML 150ML used . After removing the current catheter a JL 3.5 DXTERITY CATHETER FR 5 was advanced over a WIRE, E XCHANGE 260CM 17:42:46 3MMJ 260CM. 17:45:26 The LCA was injected and visualized at various angles. OMNIPAQUE, 350 MG, 150ML 150ML used . 17:45:56 HR=64 bpm, EXGL=111/78 mmhg, SpO2=99 %, Resp=10 B/min, Pain=6, Jayce=10, Merrill=2 After removing the current catheter a EBU 3.5 Z2 GUIDE CATHETER FR 6 was advanced over a WIRE, EXCHANGE 17:48:56 260CM 3MMJ 260CM. 4800 units HEPARIN given in lab by Katey Kang RN in Left Antecubital via Peripheral IV. O rdered by Bob, 17:50:23 Chris Quintanilla. 17:50:59 HR=69 bpm, JYMZ=518/85 mmhg, VpA7=201.0 %, Resp=10 B/min, Pain=6, Jayce=10, Merrill=2 17:53:10 A WIRE, BALANCE MIDDLEWEIGHT 190CM 190CM was inserted via Radial (right). 17:56:02 HR=72 bpm, UPFN=203/81 mmhg, QvH4=302.0 %, Resp=16 B/min, Pain=6, Ajyce=10, Merrill=2 17:58:27 Interventional wire has crossed the lesion A BALLOON, 2.0 X 10MM EUPHORA 10MM was inserted over WIRE, BALANCE MIDDLEWEIGHT 190CM 190CM via the 17:59:28 Radial (right). 17:59:44 Activated Clotting Time Drawn 18:01:03 HR=65 bpm, BALA=435/88 mmhg, TuB9=435.0 %, Resp=14 B/min, Pain=6, Jayce=10, Merrill=2 A BALLOON, 2.0 X 10MM EUPHORA 10MM over a WIRE, BALANCE MIDDLEWEIGHT 190CM 190CM in the CIRC Mi d was 18:01:28 inflated using a 30 VANDANA INDEFLATOR at 10 vandana for 30 sec. A BALLOON, 2.0 X 10MM EUPHORA 10MM over a WIRE, BALANCE MIDDLEWEIGHT 190CM 190CM in the CIRC Mi d was 18:02:49 inflated using a 30 VANDANA INDEFLATOR at 12 vandana for 15 sec. A BALLOON, 2.0 X 10MM EUPHORA 10MM over a WIRE, BALANCE MIDDLEWEIGHT 190CM 190CM in the CIRC Mi d was 18:03:29 inflated using a 30 VANDANA INDEFLATOR at 12 vandana for 25 sec. 18:04:04 Balloon Removed. 18:05:21 ACT (Normal Range 90-180) = 286 18:06:04 HR=65 bpm, JXTK=912/77 mmhg, SaT5=265.0 %, Resp=15 B/min, Pain=6, Jayce=10, Merrill=2 A STENT, 2.25 12MM BELL 2.25 12MM was advanced through a EBU 3.5 Z2 GUIDE CATHETER FR 6 over a WIRE, 18:07:29 BALANCE MIDDLEWEIGHT 190CM 190CM. 1000 units HEPARIN given in lab by Katey Kang, RN in Left Antecubital via Peripheral IV. O rdered by Bob, 18:08:40 Chris Velazquez A STENT, 2.25 12MM BELL 2.25 12MM was deployed using a 30 VANDANA INDEFLATOR at 12 atmospheres for 25 seconds 18:10:12 in the CIRC Mid. 18:10:35 Delivery device removed 18:11:01 HR=63 bpm, GIGK=596/81 mmhg, OqG2=101.0 %, Resp=14 B/min, Pain=6, Jayce=10, Merrill=2 A BALLOON, 2.25 X 8MM NC EUPHORA 8MM was inserted over WIRE, BALANCE MIDDLEWEIGHT 190CM 190CM v ia the 18:11:05 CIRC Mid. A BALLOON, 2.25 X 8MM NC EUPHORA 8MM over a WIRE, BALANCE MIDDLEWEIGHT 190CM 190CM in the CIRC Mid 18:12:47 was inflated using a 30 VANDANA INDEFLATOR at 12 vandana for 15 sec. 18:13:14 Balloon Removed. 18:13:57 150 mcg NTG (IC) given in lab by Chris Rojas via Intra-coronary. 18:16:02 Wire removed 18:16:04 HR=63 bpm, MATZ=789/74 mmhg, SpO2=99.0 %, Resp=15 B/min, Pain=6, Jayce=10, Merrill=2 18:17:00 A WIRE, BALANCE MIDDLEWEIGHT 190CM 190CM was inserted via Radial (right). 18:20:32 Wire removed 18:20:34 A WIRE, BALANCE MIDDLEWEIGHT 190CM 190CM was inserted via Radial (right). 18:21:01 HR=63 bpm, FHUN=472/91 mmhg, SpO2=92.0 %, Resp=9 B/min, Pain=6, Jayce=10, Merrill=2 18:22:32 Interventional wire has crossed the lesion A BALLOON, 2.25 X 8MM NC EUPHORA 8MM was inserted over WIRE, BALANCE MIDDLEWEIGHT 190CM 190CM v ia the 18:22:37 CIRC Mid. 18:23:45 Balloon Removed. A BALLOON, 2.25 6MM NC QUANTUM APEX MR 2.25 6MM was inserted over WIRE, BALANCE MIDDLEWEIGHT 19 0CM 18:24:55 190CM via the Radial (right). 18:26:00 HR=64 bpm, UVQZ=446/94 mmhg, AiI7=122.0 %, Resp=15 B/min, Pain=5, Jayce=10, Merrill=2 A BALLOON, 2.25 6MM NC QUANTUM APEX MR 2.25 6MM over a WIRE, BALANCE MIDDLEWEIGHT 190CM 190CM i n the 18:26:34 CIRC Mid was inflated using a 30 VANDANA INDEFLATOR at 14 vandana for 10 sec. A BALLOON, 2.25 6MM NC QUANTUM APEX MR 2.25 6MM over a WIRE, BALANCE MIDDLEWEIGHT 190CM 190CM i n the 18:27:18 CIRC Mid was inflated using a 30 VANDANA INDEFLATOR at 18 vandana for 15 sec. 18:27:59 Balloon Removed. 18:28:15 Wire removed 18:29:41 Activated Clotting Time Drawn After removing the current catheter a JR 4.0 GUIDE CATHETER FR 6 was advanced over a WIRE, EXCH CELESTE 260CM 18:31:22 3MMJ 260CM. 18:31:40 HR=53 bpm, UVDN=100/79 mmhg, SpO2=98.0 %, Resp=15 B/min, Pain=5, Jayce=10, Merrill=2 18:34:59 A WIRE, BALANCE MIDDLEWEIGHT 190CM 190CM was inserted via Radial (right). 18:36:05 HR=61 bpm, BBOC=411/82 mmhg, SpO2=99.0 %, Resp=13 B/min, Pain=5, Jayce=10, Merrill=2 18:36:44 ACT (Normal Range 90-180) = 285 18:37:33 Interventional wire has crossed the lesion A BALLOON, 2.0 X 10MM EUPHORA 10MM was inserted over WIRE, BALANCE MIDDLEWEIGHT 190CM 190CM via the 18:37:43 RCA Mid. 18:37:55 Balloon Removed. 18:38:00 Wire removed 18:39:20 A WIRE, BALANCE MIDDLEWEIGHT 190CM 190CM was inserted via Radial (right). 18:41:04 HR=64 bpm, ZVZH=555/80 mmhg, SpO2=98 %, Resp=18 B/min, Pain=5, Jayce=10, Merrill=2 18:43:55 Wire removed 18:44:53 A WIRE, BALANCE MIDDLEWEIGHT 190CM 190CM was inserted via Radial (right). 1000 units HEPARIN given in lab by Katey Kang RN in Left Antecubital via Peripheral IV. O rdered by Bob, 18:45:38 Vincent G. 18:46:05 HR=62 bpm, WFMR=422/76 mmhg, SpO2=98.0 %, Resp=18 B/min, Pain=5, Jayce=10, Merrill=2 A BALLOON, 2.0 X 10MM EUPHORA 10MM was inserted over WIRE, BALANCE MIDDLEWEIGHT 190CM 190CM via the 18:47:55 RCA Mid. A BALLOON, 2.0 X 10MM EUPHORA 10MM over a WIRE, BALANCE MIDDLEWEIGHT 190CM 190CM in the RCA Mid was 18:48:56 inflated using a 30 VANDANA INDEFLATOR at 14 vandana for 10 sec. 18:50:02 Balloon Removed. A STENT, 3.0 12MM BELL 3.0 12MM was advanced through a JR 4.0 GUIDE CATHETER FR 6 over a WIRE, BALANCE 18:50:07 MIDDLEWEIGHT 190CM 190CM. 18:51:04 HR=71 bpm, BWUW=691/87 mmhg, SpO2=99.0 %, Resp=15 B/min, Pain=5, Jayce=10, Merrill=2 A STENT, 3.0 12MM BELL 3.0 12MM was deployed using a 30 VANDANA INDEFLATOR at 14 atmospheres for 30 seconds in 18:51:56 the RCA Mid. 18:52:28 Delivery device removed A BALLOON, 3.0 X 8MM NC EUPHORA 8MM was inserted over WIRE, BALANCE MIDDLEWEIGHT 190CM 190CM vi a the 18:53:10 RCA Mid. A BALLOON, 3.0 X 8MM NC EUPHORA 8MM over a WIRE, BALANCE MIDDLEWEIGHT 190CM 190CM in the RCA Mi d was 18:54:02 inflated using a 30 VANDANA INDEFLATOR at 14 vandana for 15 sec. A BALLOON, 3.0 X 8MM NC EUPHORA 8MM over a WIRE, BALANCE MIDDLEWEIGHT 190CM 190CM in the RCA Mi d was 18:54:39 inflated using a 30 VANDANA INDEFLATOR at 18 vandana for 15 sec. A BALLOON, 3.0 X 8MM NC EUPHORA 8MM over a WIRE, BALANCE MIDDLEWEIGHT 190CM 190CM in the RCA Mi d was 18:55:07 inflated using a 30 VANDANA INDEFLATOR at 20 vandana for 10 sec. 18:55:32 Balloon Removed. 18:56:07 HR=66 bpm, IVCJ=536/76 mmhg, SpO2=98.0 %, Resp=13 B/min, Pain=5, Jayce=10, Merrill=2 18:56:57 Wire removed 18:57:15 Catheter was removed 18:58:13 Case End Radial Compression Device Used. 10 mLs of air placed in BAND, RADIAL COMPRESSION TR SHORT 24 24 CM. Affected 18:58:16 hand 100 % O2 saturation. Assessment: Final Case, HR=72 BPM, Rhythm=nsr, FBCO=176/76 mmhg, Chest Pain=6, Edema=None, Col or=Normal, Skin = Warm, Dry Right Pulses: Jorge L Ped=3, Femoral=3, Radial=2 18:58:28 Left Pulses: Jorge L Ped=3, Femoral=3 Neurological: State=Alert, Ox3, RODRIGUEZ Respiration: Resp=16 B/min, QjF1=693 % 19:00:46 Catheter(s) removed without difficulty 19:00:47 Sterile dressing applied to site 19:00:47 No case complications noted. 19:00:48 Cine recording checked. 19:00:49 Bedside Report will be given. 19:00:54 Verbal Stimulation=2 Physical Stimulation=2 Airway=2 Respiration=2 TOTAL=8. (0=absent, 1=l imited, 2=present) 19:01:02 A Left Heart Cath was performed. 19:01:04 HR=69 bpm, PDVY=933/83 mmhg, UwE7=337.0 %, Resp=14 B/min, Pain=1, Jayce=10, Merrill=2 19:06:09 HR=66 bpm, QOKW=445/74 mmhg, UuI0=894 %, Resp=11 B/min, Pain=1, Jayce=10, Merrill=2 19:10:10 600 mg PLAVIX given in lab by Katey Kang, MARGARITA via Oral. Ordered by Chris Rojas 19:11:04 HR=84 bpm, JTDC=296/89 mmhg, GfA4=616.0 %, Resp=18 B/min, Pain=1, Jayce=10, Merrill=2 19:11:58 Vitals capture stopped. 19:12:06 Patient moved to stretcher End Study - Contrast Media Used In Study Contrast Total Opened (mL) Total Used (mL) Total Wasted (mL) Omnipaque 175 175 0 End Study - Maximum Contrast Load Max Contrast Load (mL) 662.5 End Study - Radiation Exposure Fluoro Time (minutes) 24.3 End Study - Patient Disposition Complications Transferred To Interventional Outcome No Telemetry Bed successful
[2017-10-10] MEDS ORDERED: MORPHINE SULFATE 4 MG/ML INJ IV PUSH PRN (19:15)
[2017-10-10] MEDS ORDERED: ACETAMINOPHEN 325 MG TAB PO PRN (19:15)
[2017-10-10] MEDS ORDERED: oxyCODONE/ACETAMINOPHEN 5 MG/325 MG TAB PO PRN (19:15)
[2017-10-10] MEDS ORDERED: ONDANSETRON HCL 4 MG/2 ML VIAL IVP PRN (19:15)
[2017-10-10] MEDS ORDERED: SODIUM CHLOR 0.9% 1000 ML INJ 1,000 ML IV SCH (19:15)
[2017-10-10] MEDS ORDERED: oxyCODONE/ACETAMINOPHEN 10 MG/325 MG TAB PO PRN (19:15)
[2017-10-10] MEDS ORDERED: MISC INFORMATION XX ONE (19:15)
[2017-10-10] MEDS: SODIUM CHLORIDE 0.9% FLUSH 10 ML FLUSH IV FLUSH SCH (21:24)
[2017-10-10] MEDS: ATORVASTATIN 80 MG TAB PO SCH (21:24)
--- NOTE | 2017-10-10 22:28 | MB ---
cc: DYANA MOURA DO DATE OF CONSULTATION 10/10/2017 REASON FOR CONSULTATION Elevated troponin, chest pain. HISTORY OF PRESENT ILLNESS Sunni Hinkle is a pleasant 42-year-old female who presented to [facility] Emergency Room on October 10, 2017 due to chest pain. She states that chest pain started around 08:00 a.m. this morning when she woke up. 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 Pain is around the center of her chest, then goes to the right side of her jaw and down her left shoulder. Upon arrival labs were drawn and she was found to have an elevated troponin. The patient continued to have chest pain and so I was called urgently to see the patient for consideration of cardiac catheterization. In seeing her she is continuing to have chest pain at 8/10. PAST MEDICAL HISTORY 1. History of myocardial infarction (2000). Apparently the patient was started on control and her blood pressure was exceptionally elevated and they felt that it was due to this and underwent stress testing which showed no significant disease at that time. 2. Hyperlipidemia. 3. Hypertension. PAST SURGICAL HISTORY 1. . 2. Tubal ligation. ALLERGIES 1. CODEINE. 2. HYDROMORPHONE. MEDICATIONS Denies. FAMILY HISTORY Father had a heart attack at an extremely young age in his late 20s to early 30s. SOCIAL HISTORY The patient drinks socially. Denies tobacco abuse. Does smoke marijuana regularly. REVIEW OF SYSTEMS 14-systems were reviewed including osteopathic. Pertinent positives and negatives above otherwise negative. PHYSICAL EXAMINATION VITAL SIGNS: Temperature 98.4, heart rate 70, blood pressure 156/89, respirations 16, pulse ox 100% on 2 liters. GENERAL: In general the patient appears to be in moderate distress due to chest pain. HEENT: Extraocular muscles intact. Mucous membranes moist. NECK: Supple. No JVD at 45 degrees. No carotid bruits heard bilaterally. Carotid upstroke is brisk in nature. CARDIOVASCULAR: Heart is regular rate and rhythm. Positive first and second heart sounds with no noted murmurs, gallops or rubs. LUNGS: Clear to auscultation bilaterally. No wheezes, rales or rhonchi. ABDOMEN: Soft, nontender. Nondistended. No organomegaly noted. EXTREMITIES: Show no clubbing, cyanosis or edema. Femoral and distal pulses intact bilaterally. NEUROLOGIC: No focal deficits. SKIN: Warm, dry and intact OSTEOPATHIC: No kyphoscoliosis, lordosis or paraspinal tender points. LABORATORY FINDINGS Hemoglobin 14.8, hematocrit 43.1, platelets 386. Potassium 3.7, BUN 9.0, creatinine 0.67. Troponin 0.22. Electrocardiogram (October 18, 2017 at 1430) sinus rhythm, nonspecific ST elevation inferolaterally possible injury type pattern. IMPRESSION 1. Non-ST elevation myocardial infarction. 2. Chest pain concerning for coronary insufficiency. 3. Questionable history of previous AR due to accelerated hypertension. 4. Accelerated hypertension on arrival with a blood pressure of 212/97. 5. Marijuana use. 6. Family history of premature coronary artery disease. RECOMMENDATIONS 1. Ms. Hinkle presented with chest pain concerning for coronary insufficiency. She continues to have chest pain at this time and I feel that it is appropriate to take her urgently to the cardiac catheterization lab. 2. Risks, benefits and alternatives have been to explained and her and she consents as such. We will plan for right radial access. 3. Overall she will need better blood pressure control. 4. Will also check a 2-D echo to look at her overall left ventricular function, cardiac structure and possible valvopathies. 5. Further recommendations will be made after coronary visualization. Thank you for allowing me to see Sunni Hinkle. If there are any questions please do not hesitate to call. Dyana Moura DO VGP/KK /9:47 PM /10:00 PM
--- NOTE | 2017-10-10 23:18 | HHI.HP ---
[facility] No Primary Care Physician Admission Diagnosis Acute Coronary Syndrome Diagnoses: Travel History International Travel<30 Days: No Contact w/Intl Traveler <30 Da: No Traveled to Known Affected Are: No History of Present Illness 42-year-old female with no significant past medical history presents to the emergency department for evaluation of chest pain. The patient reports that on Monday her pain began with bilateral back and breast pain. She reports that with hot showers and sleep the pain resolved however she woke up this morning feeling ill. She reports that she had chest pain and bilateral breast pain that continued to worsen throughout the day. She states the pain is 10/10 and describes it as a pressure that radiates down her left arm. In the emergency department, patient was found to have an elevated troponin with continued, active chest pain. She was seen by Dr. Valdivia from cardiology who took her for an urgent cardiac catheterization. At the time of her interview, the patient is status post catheter. She reports no chest pain. Denies any other associated symptoms such as nausea/vomiting or shortness of breath. Review of Systems Except as stated in HPI: all other systems reviewed are Neg Denies fever or chills Denies blurry vision, otorrhea, rhinorrhea Denies sore throat and cough No chest pain, palpitations No shortness of breath or wheezing No abdominal pain Denies constipation/diarrhea/nausea/vomiting Denies muscle pain Denies focal weakness No rashes Past Family Social History Past Medical History None Past Surgical History Bilateral tubal ligation Reported Medications Reported Meds & Active Scripts Active No Active Prescriptions or Reported Medications Allergies: Coded Allergies: codeine (Unverified Adverse Reaction, Mild, VOMITING, 04/04/17) THE PT TOLERATES LORTAB hydromorphone (Unverified Adverse Reaction, Mild, VOMITING, 04/04/17) Family History Father with CAD Social History Denies tobacco. Occasional alcohol and marijuana. Denies all other illicit drugs. Physical Exam Vital Signs Vital Signs Date Time Temp Pulse Resp B/P (MAP) Pulse Ox O2 Delivery O2 Flow Rate FiO2 10/10/17 20:00 66 10/10/17 17:14 10/10/17 17:13 60 18 135/69 (91) 100 Nasal Cannula 2.00 10/10/17 16:49 16 10/10/17 16:49 16 10/10/17 16:22 70 16 156/89 (111) 100 Nasal Cannula 2.00 10/10/17 14:19 98.4 69 18 212/97 (135) 98 Room Air Physical Exam GENERAL: female lying in bed SKIN: No rashes, ecchymoses or lesions. Cool and dry. HEAD: Atraumatic. Normocephalic. No temporal or scalp tenderness. EYES: Pupils equal round and reactive. Extraocular motions intact. No scleral icterus. No injection or drainage. ENT: Nose without bleeding, purulent drainage or septal hematoma. Throat without erythema, tonsillar hypertrophy or exudate. Uvula midline. Airway patent. NECK: Trachea midline. No JVD or lymphadenopathy. Supple, nontender, no meningeal signs. CARDIOVASCULAR: Regular rate and rhythm without murmurs, gallops, or rubs. RESPIRATORY: Clear to auscultation. Breath sounds equal bilaterally. No wheezes , rales, or rhonchi. GASTROINTESTINAL: Abdomen soft, non-tender, nondistended. No hepato-splenomegaly , or palpable masses. No guarding. MUSCULOSKELETAL: Extremities without clubbing, cyanosis, or edema. No joint tenderness, effusion, or edema noted. No calf tenderness. NEUROLOGICAL: Awake and alert. Cranial nerves II through XII intact. Motor and sensory grossly within normal limits. Normal speech. Laboratory Laboratory Tests Test 10/10/17 14:25 10/10/17 16:35 White Blood Count 10.6 Red Blood Count 5.12 Hemoglobin 14.8 Hematocrit 43.1 Mean Corpuscular Volume 84.1 Mean Corpuscular Hemoglobin 28.9 Mean Corpuscular Hemoglobin Concent 34.4 Red Cell Distribution Width 14.9 Platelet Count 386 Mean Platelet Volume 7.9 Neutrophils (%) (Auto) 60.4 Lymphocytes (%) (Auto) 29.1 Monocytes (%) (Auto) 8.6 Eosinophils (%) (Auto) 1.4 Basophils (%) (Auto) 0.5 Neutrophils # (Auto) 6.4 Lymphocytes # (Auto) 3.1 Monocytes # (Auto) 0.9 Eosinophils # (Auto) 0.1 Basophils # (Auto) 0.1 CBC Comment DIFF FINAL Differential Comment Prothrombin Time 10.6 Prothromb Time International Ratio 1.0 Activated Partial Thromboplast Time 31.3 Blood Urea Nitrogen 9 Creatinine 0.67 Random Glucose 93 Calcium Level 9.2 Magnesium Level 2.4 Sodium Level 138 Potassium Level 3.7 Chloride Level 106 Carbon Dioxide Level 22.8 Anion Gap 9 Estimat Glomerular Filtration Rate 96 Total Creatine Kinase 76 Troponin I 0.22 0.66 Result Diagram: 10/10/17 1425 10/10/17 142 Caprini VTE Risk Assessment Caprini VTE Risk Assessment: No/Low Risk (score <= 1) Caprini Risk Assessment Model Point Value = 1 Point Value = 2 Point Value = 3 Point Value = 5 Age 41-60 Minor surgery BMI > 25 kg/m2 Swollen legs Varicose veins or History of unexplained or recurrent spontaneous Oral contraceptives or hormone replacement Sepsis (< 1 month) Serious lung disease, including pneumonia (< 1 month) Abnormal pulmonary function Acute myocardial infarction Congestive heart failure (< 1 month) History of inflammatory bowel disease Medical patient at bed rest Age 61-74 Arthroscopic surgery Major open surgery (> 45 min) Laparoscopic surgery (> 45 min) Malignancy Confined to bed (> 72 hours) Immobilizing plaster cast Central venous access Age >= 75 History of VTE Family history of VTE Factor V Leiden Prothrombin [id number] Lupus anticoagulant Anticardiolipin antibodies Elevated serum homocysteine Heparin-induced thrombocytopenia Other congenital or acquired thrombophilia Stroke (< 1 month) Elective arthroplasty Hip, pelvis, or leg fracture Acute spinal cord injury (< 1 month) Prophylaxis Regimen Total Risk Factor Score Risk Level Prophylaxis Regimen 0-1 Low Early ambulation 2 Moderate Order ONE of the following: *Sequential Compression Device (SCD) *Heparin 5000 units SQ BID 3-4 Higher Order ONE of the following medications: *Heparin 5000 units SQ TID *Enoxaparin/Lovenox 40 mg SQ daily (WT < 150 kg, CrCl > 30 mL/min) *Enoxaparin/Lovenox 30 mg SQ daily (WT < 150 kg, CrCl > 10-29 mL/min) *Enoxaparin/Lovenox 30 mg SQ BID (WT < 150 kg, CrCl > 30 mL/min) AND/OR *Sequential Compression Device (SCD) 5 or more Highest Order ONE of the following medications: *Heparin 5000 units SQ TID (Preferred with Epidurals) *Enoxaparin/Lovenox 40 mg SQ daily (WT < 150 kg, CrCl > 30 mL/min) *Enoxaparin/Lovenox 30 mg SQ daily (WT < 150 kg, CrCl > 10-29 mL/min) *Enoxaparin/Lovenox 30 mg SQ BID (WT < 150 kg, CrCl > 30 mL/min) AND *Sequential Compression Device (SCD) Assessment and Plan Assessment and Plan Assessment/plan: 1. NSTEMI Status post urgent cardiac catheterization Cardiology consulted, appreciate recommendations Medications per cardiology: Aspirin/Plavix, Atorvastatin FEN Heart healthy diet Electrolytes: Monitor and replete prn Physician Certification 2 Midnight Certification Type: Admission for Inpatient Services Order for Inpatient Services The services are ordered in accordance with Medicare regulations or non- Medicare payer requirements, as applicable. In the case of services not specified as inpatient-only, they are appropriately provided as inpatient services in accordance with the 2-midnight benchmark. Estimated LOS (days): 2 2 days is the estimated time the patient will need to remain in the hospital, assuming treatment plan goals are met and no additional complications. Post-Hospital Plan: Not yet determined Katey Ryan MD Oct 10, 2017 23:18
[2017-10-11] VITALS (29 sets, daily range): BP systolic 112–140; BP diastolic 69–93; PULSE 53–98; RESP 16–20; TEMP 97.8–98.5; O2SAT 95–100
[2017-10-11 06:41] LABS: AUTOMATED NEUTROPHIL # 5.7 TH/MM3 (1.8-7.7); BASOPHIL % 0.5 % (0.0-2.0); EOSINOPHIL # 0.1 TH/MM3 (0-0.4); EOSINOPHIL % 1.3 % (0.0-4.0); HEMATOCRIT 39.4 % (35.0-46.0); HEMOGLOBIN 13.7 GM/DL (11.6-15.3); LYMPH % 21.9 % (9.0-44.0); LYMPHOCYTE # 1.9 TH/MM3 (1.0-4.8); MEAN CORPUSCULAR HGB CONC 34.9 % (32.0-36.0); MEAN PLATELET VOLUME 7.6 FL (7.0-11.0); MONO % 9.7 % (0.0-8.0); MONOCYTE # 0.8 TH/MM3 (0-0.9); NEUT % 66.6 % (16.0-70.0); PLATELET COUNT 329 TH/MM3 (150-450); RED BLOOD COUNT 4.75 MIL/MM3 (4.00-5.30); RED CELL DISTRIBUTION WIDTH 15.1 % (11.6-17.2); WHITE BLOOD COUNT 8.5 TH/MM3 (4.0-11.0)
[2017-10-11 07:03] LABS: BICARBONATE 22.9 MEQ/L (21.0-32.0); CALCIUM 8.7 MG/DL (8.5-10.1); CREATININE 0.51 MG/DL (0.50-1.00)
[2017-10-11] MEDS ORDERED: IOHEXOL 350 MG/ML 100 ML BTL (for Cath Lab) OTHER ONE (08:10)
[2017-10-11] MEDS: SODIUM CHLORIDE 0.9% FLUSH 10 ML FLUSH IV FLUSH SCH ×2 (08:24→20:59)
[2017-10-11] MEDS: ASPIRIN 81 MG CHEW TAB PO SCH (08:24)
[2017-10-11] MEDS: CLOPIDOGREL 75 MG TAB PO SCH (08:24)
--- NOTE | 2017-10-11 15:39 | EKG ---
Date Performed: 10/10/2017 Time Performed: 16:20:47 PTAGE: 42 years EKG: Sinus rhythm WITH SINUS ARRHYTHMIA SEPTAL MYOCARDIAL INFARCTION ABNORMAL ECG INTERPRETATION BASED ON A DEFAULT AG E OF 40 YEARS PREVIOUS TRACING : 10/10/2017 14.30 DOCTOR: Te Rodriguez Interpretating Date/Time 10/11/2017 15:37:17
--- NOTE | 2017-10-11 15:43 | EKG ---
Date Performed: 10/10/2017 Time Performed: 14:30:05 PTAGE: 42 years EKG: Sinus rhythm LOW QRS VOLTAGE IN PRECORDIAL LEADS MODERATE ST DEPRESSION ABNORMAL ECG PREVIOUS TRACING : 03/02/2016 20.39 DOCTOR: Te Rodriguez Interpretating Date/Time 10/11/2017 15:42:39
--- NOTE | 2017-10-11 16:37 | HHI.PR ---
Subjective Remarks Patient is doing well status post heart catheter with 2 stents placed. No complaints of chest pain when seen. Echocardiogram pending. 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 Objective Vital Signs Date Time Temp Pulse Resp B/P (MAP) Pulse Ox O2 Delivery O2 Flow Rate FiO2 10/11/17 12:09 66 10/11/17 12:08 66 16 117/73 (88) 98 10/11/17 11:48 98.3 62 18 112/80 (91) 95 10/11/17 11:30 68 10/11/17 10:29 63 10/11/17 10:00 78 10/11/17 09:55 63 10/11/17 09:00 60 10/11/17 08:14 98 10/11/17 08:00 68 10/11/17 07:58 98.4 62 18 136/93 (107) 100 10/11/17 07:58 100 Room Air 10/11/17 07:27 98.4 58 16 136/93 (107) 100 10/11/17 07:27 58 10/11/17 07:00 63 10/11/17 05:00 58 10/11/17 04:00 53 10/11/17 04:00 Room Air 10/11/17 04:00 97.8 60 18 129/78 (95) 99 10/11/17 03:00 56 10/11/17 02:00 56 10/11/17 01:00 56 10/11/17 00:00 98.0 59 20 129/69 (89) 96 10/11/17 00:00 Room Air 10/11/17 00:00 57 10/10/17 23:00 56 10/10/17 22:00 58 10/10/17 22:00 Room Air 10/10/17 22:00 98.4 62 20 118/72 (87) 96 10/10/17 21:00 62 10/10/17 20:00 Room Air 10/10/17 20:00 66 10/10/17 20:00 98.7 64 20 137/70 (92) 95 10/10/17 17:14 10/10/17 17:13 60 18 135/69 (91) 100 Nasal Cannula 2.00 10/10/17 16:49 16 10/10/17 16:49 16 I/O 10/10/17 10/10/17 10/10/17 10/11/17 10/11/17 10/11/17 07:00 15:00 23:00 07:00 15:00 23:00 Intake Total 480 ml Output Total 500 ml Balance -20 ml Intake Oral 480 ml Output Urine Total 500 ml # Bowel Movements 0 Result Diagram: 10/11/17 0529 10/11/17 0529 Objective Remarks GENERAL: NAD, A&Ox3 HEAD: Normocephalic. NECK: Supple, trachea midline. No lymphadenopathy. EYES: No scleral icterus. No injection or drainage. CARDIOVASCULAR: Regular rate and rhythm without murmurs, gallops, or rubs. RESPIRATORY: Breath sounds equal bilaterally. No accessory muscle use. GASTROINTESTINAL: Abdomen soft, non-tender, nondistended. MUSCULOSKELETAL: No cyanosis, or edema. SKIN: Warm and dry. NEURO: No focal neurological deficitis. A/P Problem List: (1) Acute coronary syndrome ICD Code: I24.9 - Acute ischemic heart disease, unspecified Status: Acute Assessment and Plan 42-year-old female admitted secondary to NSTEMI NSTEMI 2 coronary stents placed Continue to monitor on telemetry Cardiology following Continue aspirin Continue Plavix Continue atorvastatin Beta chao and DAVID inhibitor will be started DVT prophylaxis Heparin Bayron Miramontes MD Oct 11, 2017 16:37
--- NOTE | 2017-10-11 17:58 | PD.CARD.PN ---
Subjective Subjective Remarks Doing well overall No chest pain/SOB Objective Medications Current Medications Medications (Trade) Dose Ordered Sig/Brionna Route Start Time Stop Time Status Last Admin (NS Flush) 2 ml UNSCH PRN IV FLUSH 10/10/17 17:45 (NS Flush) 2 ml BID IV FLUSH 10/10/17 21:00 10/11/17 08:24 (Narcan Inj) 0.4 mg UNSCH PRN IV PUSH 10/10/17 17:45 (Tylenol) 325 mg Q4H PRN PO 10/10/17 19:15 (Percocet 5-325 Mg) 1 tab Q4H PRN PO 10/10/17 19:15 (Percocet 10-325 Mg) 1 tab Q4H PRN PO 10/10/17 19:15 (Morphine Inj) 2 mg Q30M PRN IV PUSH 10/10/17 19:15 (Zofran Inj) 4 mg Q6H PRN IVP 10/10/17 19:15 (Aspirin Chew) 81 mg DAILY PO 10/11/17 09:00 10/11/17 08:24 (Plavix) 75 mg DAILY PO 10/11/17 09:00 10/11/17 08:24 (Lipitor) 80 mg HS PO 10/10/17 21:00 10/10/17 21:24 Vital Signs / I&O Vital Signs Date Time Temp Pulse Resp B/P (MAP) Pulse Ox O2 Delivery O2 Flow Rate FiO2 10/11/17 15:20 98.5 62 16 128/81 (97) 97 10/11/17 12:09 66 10/11/17 12:08 66 16 117/73 (88) 98 10/11/17 11:48 98.3 62 18 112/80 (91) 95 10/11/17 11:30 68 10/11/17 10:29 63 10/11/17 10:00 78 10/11/17 09:55 63 10/11/17 09:00 60 10/11/17 08:14 98 10/11/17 08:00 68 10/11/17 07:58 98.4 62 18 136/93 (107) 100 10/11/17 07:58 100 Room Air 10/11/17 07:27 98.4 58 16 136/93 (107) 100 10/11/17 07:27 58 10/11/17 07:00 63 10/11/17 05:00 58 10/11/17 04:00 53 10/11/17 04:00 Room Air 10/11/17 04:00 97.8 60 18 129/78 (95) 99 10/11/17 03:00 56 10/11/17 02:00 56 10/11/17 01:00 56 10/11/17 00:00 98.0 59 20 129/69 (89) 96 10/11/17 00:00 Room Air 10/11/17 00:00 57 10/10/17 23:00 56 10/10/17 22:00 58 10/10/17 22:00 Room Air 10/10/17 22:00 98.4 62 20 118/72 (87) 96 10/10/17 21:00 62 10/10/17 20:00 Room Air 10/10/17 20:00 66 10/10/17 20:00 98.7 64 20 137/70 (92) 95 I/O 10/10/17 10/10/17 10/10/17 10/11/17 10/11/17 10/11/17 07:00 15:00 23:00 07:00 15:00 23:00 Intake Total 480 ml Output Total 500 ml Balance -20 ml Intake Oral 480 ml Output Urine Total 500 ml # Bowel Movements 0 Physical Exam GENERAL: NAD, AAOx3 SKIN: Warm and dry. HEAD: Atraumatic. Normocephalic. EYES: Pupils equal and round. No scleral icterus. No injection or drainage. ENT: No nasal bleeding or discharge. Mucous membranes pink and moist. NECK: Trachea midline. No JVD. CARDIOVASCULAR: Regular rate and rhythm. RESPIRATORY: No accessory muscle use. Clear to auscultation. Breath sounds equal bilaterally. GASTROINTESTINAL: Abdomen soft, non-tender, nondistended. Hepatic and splenic margins not palpable. MUSCULOSKELETAL: Extremities without clubbing, cyanosis, or edema. No obvious deformities. Right radial no hematoma, neurovascularly intact distally NEUROLOGICAL: Awake and alert. No obvious cranial nerve deficits. Motor grossly within normal limits. Five out of 5 muscle strength in the arms and legs. Normal speech. PSYCHIATRIC: Appropriate mood and affect; insight and judgment normal. Laboratory Laboratory Tests Test 10/11/17 05:29 White Blood Count 8.5 TH/MM3 Red Blood Count 4.75 MIL/MM3 Hemoglobin 13.7 GM/DL Hematocrit 39.4 % Mean Corpuscular Volume 83.0 FL Mean Corpuscular Hemoglobin 29.0 PG Mean Corpuscular Hemoglobin Concent 34.9 % Red Cell Distribution Width 15.1 % Platelet Count 329 TH/MM3 Mean Platelet Volume 7.6 FL Neutrophils (%) (Auto) 66.6 % Lymphocytes (%) (Auto) 21.9 % Monocytes (%) (Auto) 9.7 % Eosinophils (%) (Auto) 1.3 % Basophils (%) (Auto) 0.5 % Neutrophils # (Auto) 5.7 TH/MM3 Lymphocytes # (Auto) 1.9 TH/MM3 Monocytes # (Auto) 0.8 TH/MM3 Eosinophils # (Auto) 0.1 TH/MM3 Basophils # (Auto) 0.0 TH/MM3 CBC Comment DIFF FINAL Differential Comment Blood Urea Nitrogen 8 MG/DL Creatinine 0.51 MG/DL Random Glucose 101 MG/DL Calcium Level 8.7 MG/DL Sodium Level 139 MEQ/L Potassium Level 3.6 MEQ/L Chloride Level 107 MEQ/L Carbon Dioxide Level 22.9 MEQ/L Anion Gap 9 MEQ/L Estimat Glomerular Filtration Rate 132 ML/MIN Assessment and Plan Problem List: (1) Acute coronary syndrome ICD Codes: I24.9 - Acute ischemic heart disease, unspecified Status: Acute (2) Family history of premature CAD ICD Codes: Z82.49 - Family history of ischemic heart disease and other diseases of the circulatory system (3) Marijuana use ICD Codes: F12.90 - Cannabis use, unspecified, uncomplicated Assessment and Plan 1) CAD/NSTEMI s/p FREDY to LCX, FREDY to RCA ASA/Brilinta/Statin Plan to add BB and DAVID-I 2) Echo pending 3) If stable tomorrow, will plan to discharge home Chris Rojas DO Oct 11, 2017 17:58
[2017-10-11] MEDS ORDERED: PILL SPLITTER OTHER PRN (19:15)
[2017-10-11] MEDS: ATORVASTATIN 80 MG TAB PO SCH (20:59)
[2017-10-11] MEDS: METOPROLOL TARTRATE 25 MG TAB PO SCH (20:59)
[2017-10-12] VITALS (15 sets, daily range): BP systolic 107–126; BP diastolic 70–80; PULSE 56–90; RESP 16–19; TEMP 98.1–98.6; O2SAT 96–98
[2017-10-12] MEDS ORDERED: MAGNESIUM HYDROXIDE SUSP 30 ML CUP PO ONE (01:15)
[2017-10-12] MEDS ORDERED: ALUMINUM/MAGNESIUM/SIMETH 30 ML CUP PO ONE (01:15)
[2017-10-12] MEDS: DOCUSATE SODIUM 100 MG CAP PO SCH ×2 (01:27→08:39)
[2017-10-12 06:22] LABS: AUTOMATED NEUTROPHIL # 7.2 TH/MM3 (1.8-7.7); BASOPHIL % 0.4 % (0.0-2.0); EOSINOPHIL # 0.1 TH/MM3 (0-0.4); EOSINOPHIL % 0.6 % (0.0-4.0); HEMATOCRIT 41.1 % (35.0-46.0); HEMOGLOBIN 14.5 GM/DL (11.6-15.3); LYMPH % 21.8 % (9.0-44.0); LYMPHOCYTE # 2.3 TH/MM3 (1.0-4.8); MEAN CELL VOLUME 82.3 FL (80.0-100.0); MEAN CORPUSCULAR HEMOGLOBIN 29.1 PG (27.0-34.0); MEAN CORPUSCULAR HGB CONC 35.3 % (32.0-36.0); MEAN PLATELET VOLUME 7.6 FL (7.0-11.0); MONOCYTE # 0.8 TH/MM3 (0-0.9); NEUT % 69.2 % (16.0-70.0); PLATELET COUNT 339 TH/MM3 (150-450); RED BLOOD COUNT 4.99 MIL/MM3 (4.00-5.30); RED CELL DISTRIBUTION WIDTH 14.7 % (11.6-17.2); WHITE BLOOD COUNT 10.3 TH/MM3 (4.0-11.0)
[2017-10-12 06:38] LABS: ALBUMIN 3.9 GM/DL (3.4-5.0); ALT (GPT) 21 U/L (10-53); AST (GOT) 45 U/L (15-37); BICARBONATE 22.1 MEQ/L (21.0-32.0); BLOOD UREA NITROGEN 12 MG/DL (7-18); CALCIUM 8.9 MG/DL (8.5-10.1); CHLORIDE 108 MEQ/L (98-107); CREATININE 0.55 MG/DL (0.50-1.00); GLOMERULAR FILTRATION RATE 121 ML/MIN (>89); GLUCOSE,RANDOM 106 MG/DL (74-106); SODIUM (NA) 139 MEQ/L (136-145)
[2017-10-12 06:39] LABS: ALKALINE PHOSPHATASE 53 U/L (45-117); TOTAL BILIRUBIN ADULT 0.8 MG/DL (0.2-1.0); TOTAL PROTEIN 7.5 GM/DL (6.4-8.2)
[2017-10-12] MEDS ORDERED: ASPI81 PO (08:25)
[2017-10-12] MEDS ORDERED: ATOR80TA45 PO (08:25)
[2017-10-12] MEDS ORDERED: METO25TA3 PO (08:25)
[2017-10-12] MEDS ORDERED: PLAV75TA29 PO (08:25)
[2017-10-12] MEDS ORDERED: LISI-519 PO (08:25)
[2017-10-12] MEDS: SODIUM CHLORIDE 0.9% FLUSH 10 ML FLUSH IV FLUSH SCH (08:39)
[2017-10-12] MEDS: ASPIRIN 81 MG CHEW TAB PO SCH (08:39)
[2017-10-12] MEDS: METOPROLOL TARTRATE 25 MG TAB PO SCH (08:39)
[2017-10-12] MEDS: CLOPIDOGREL 75 MG TAB PO SCH (08:39)
[2017-10-12] MEDS ORDERED: LISINOPRIL 5 MG TAB PO SCH (09:00)
--- NOTE | 2017-10-12 13:17 | ECHRPT ---
Indication: CAD CONCLUSIONS The left ventricular systolic function is normal with an estimated ejection fraction in the range of 60-65%. Trace mitral valve regurgitation. BP: 136 / 93 HR: 63 Rhythm: Sinus MEASUREMENTS (Male / Female) Normal Values Technical Quality:Fair 2D ECHO LV Diastolic Diameter PLAX 5.0 cm 4.2 - 5.9 / 3.9 - 5.3 cm LV Systolic Diameter PLAX 3.6 cm IVS Diastolic Thickness 0.9 cm 0.6 - 1.0 / 0.6 - 0.9 cm LVPW Diastolic Thickness 0.9 cm 0.6 - 1.0 / 0.6 - 0.9 cm LV Relative Wall Thickness 0.4 RV Internal Dim ED PLAX 1.9 cm LVOT Diameter 2.2 cm Aortic Root Diameter 3.1 cm LA Systolic Diameter LX 3.1 cm 3.0 - 4.0 / 2.7 - 3.8 cm M-MODE AV Cusp Separation MM 1.7 cm DOPPLER AV Peak Velocity 139.0 cm/s AV Peak Gradient 7.7 mmHg AV Mean Gradient 4.0 mmHg AV Velocity Time Integral 30.7 cm LVOT Peak Velocity 99.3 cm/s LVOT Peak Gradient 3.9 mmHg LVOT Velocity Time Integral 21.7 cm AV Area Cont Eq vti 2.7 cm AV Area Cont Eq pk 2.7 cm Mitral E Point Velocity 93.3 cm/s Mitral A Point Velocity 81.9 cm/s Mitral E to A Ratio 1.1 LV E' Lateral Velocity 11.8 cm/s Mitral E to LV E' Lateral Ratio 7.9 LV E' Septal Velocity 9.9 cm/s Mitral E to LV E' Septal Ratio 9.4 Right Atrial Pressure 10.0 mmHg PV Peak Velocity 90.2 cm/s PV Peak Gradient 3.3 mmHg FINDINGS LEFT VENTRICLE Normal left ventricular size. Wall thickness is normal. The left ventricular systolic function is normal with an estimated ejection fraction in the range of 60-65%. No regional wall motion abnormalities are present. RIGHT VENTRICLE Normal right ventricular size and systolic function. LEFT ATRIUM The left atrial size is normal. RIGHT ATRIUM The right atrium is not well visualized. ATRIAL SEPTUM The interatrial septum not well visualized. AORTA The aortic root and proximal ascending aorta are normal in size on limited imaging. MITRAL VALVE Structurally normal mitral valve. No mitral valve stenosis. Trace mitral valve regurgitation. AORTIC VALVE Grossly normal No aortic valve stenosis or regurgitation. TRICUSPID VALVE Grossly normal tricuspid valve. No tricuspid valve stenosis or regurgitation. PULMONARY VALVE The pulmonary valve is not well visualized. VESSELS The inferior vena cava is normal in size. PERICARDIUM No pericardial effusion. Chris Rojas DO (Electronically Signed) Final Date:12 October 2017 13:16
--- NOTE | 2017-10-12 13:42 | PD.CARD.PN ---
Subjective Subjective Remarks Doing well overall No chest pain/SOB Objective Medications Current Medications Medications (Trade) Dose Ordered Sig/Brionna Route Start Time Stop Time Status Last Admin (NS Flush) 2 ml UNSCH PRN IV FLUSH 10/10/17 17:45 (NS Flush) 2 ml BID IV FLUSH 10/10/17 21:00 10/12/17 08:39 (Narcan Inj) 0.4 mg UNSCH PRN IV PUSH 10/10/17 17:45 (Tylenol) 325 mg Q4H PRN PO 10/10/17 19:15 (Percocet 5-325 Mg) 1 tab Q4H PRN PO 10/10/17 19:15 (Percocet 10-325 Mg) 1 tab Q4H PRN PO 10/10/17 19:15 (Morphine Inj) 2 mg Q30M PRN IV PUSH 10/10/17 19:15 (Zofran Inj) 4 mg Q6H PRN IVP 10/10/17 19:15 10/12/17 01:30 (Aspirin Chew) 81 mg DAILY PO 10/11/17 09:00 10/12/17 08:39 (Plavix) 75 mg DAILY PO 10/11/17 09:00 10/12/17 08:39 (Lipitor) 80 mg HS PO 10/10/17 21:00 10/11/17 20:59 (Lopressor) 12.5 mg Q12HR PO 10/11/17 21:00 10/12/17 08:39 (Prinivil) 5 mg DAILY PO 10/12/17 09:00 10/12/17 08:39 (Pill Splitter) 1 ea UNSCH PRN OTHER 10/11/17 19:15 (Colace) 100 mg BID PO 10/12/17 01:15 10/12/17 08:39 Vital Signs / I&O Vital Signs Date Time Temp Pulse Resp B/P (MAP) Pulse Ox O2 Delivery O2 Flow Rate FiO2 10/12/17 13:00 90 10/12/17 12:00 77 10/12/17 11:26 98 Nasal Cannula 2.00 10/12/17 11:00 98.6 60 17 107/74 (85) 98 10/12/17 11:00 56 10/12/17 10:00 56 10/12/17 09:00 68 10/12/17 08:00 74 10/12/17 07:15 63 10/12/17 07:15 98.3 70 16 113/70 (84) 96 10/12/17 06:28 62 10/12/17 05:28 59 10/12/17 04:36 60 10/12/17 03:15 98.1 64 19 126/80 (95) 98 10/12/17 03:15 58 10/12/17 02:20 65 10/12/17 01:34 85 10/12/17 00:29 65 10/11/17 23:10 98.0 73 18 135/82 (99) 97 10/11/17 23:00 58 10/11/17 22:00 72 10/11/17 21:00 68 10/11/17 20:00 70 10/11/17 19:20 98.0 68 19 140/75 (96) 97 10/11/17 19:10 73 10/11/17 18:00 84 10/11/17 17:00 64 10/11/17 15:20 98.5 62 16 128/81 (97) 97 I/O 10/11/17 10/11/17 10/11/17 10/12/17 10/12/17 10/12/17 07:00 15:00 23:00 07:00 15:00 23:00 Intake Total 480 ml 720 ml 480 ml Output Total 500 ml 1350 ml 550 ml Balance -20 ml -630 ml -70 ml Intake Oral 480 ml 720 ml 480 ml Output Urine Total 500 ml 1350 ml 550 ml # Bowel Movements 0 0 Physical Exam GENERAL: NAD, AAOx3 SKIN: Warm and dry. HEAD: Atraumatic. Normocephalic. EYES: Pupils equal and round. No scleral icterus. No injection or drainage. ENT: No nasal bleeding or discharge. Mucous membranes pink and moist. NECK: Trachea midline. No JVD. CARDIOVASCULAR: Regular rate and rhythm. RESPIRATORY: No accessory muscle use. Clear to auscultation. Breath sounds equal bilaterally. GASTROINTESTINAL: Abdomen soft, non-tender, nondistended. Hepatic and splenic margins not palpable. MUSCULOSKELETAL: Extremities without clubbing, cyanosis, or edema. No obvious deformities. Right radial no hematoma, neurovascularly intact distally NEUROLOGICAL: Awake and alert. No obvious cranial nerve deficits. Motor grossly within normal limits. Five out of 5 muscle strength in the arms and legs. Normal speech. PSYCHIATRIC: Appropriate mood and affect; insight and judgment normal. Laboratory Laboratory Tests Test 10/12/17 05:15 White Blood Count 10.3 TH/MM3 Red Blood Count 4.99 MIL/MM3 Hemoglobin 14.5 GM/DL Hematocrit 41.1 % Mean Corpuscular Volume 82.3 FL Mean Corpuscular Hemoglobin 29.1 PG Mean Corpuscular Hemoglobin Concent 35.3 % Red Cell Distribution Width 14.7 % Platelet Count 339 TH/MM3 Mean Platelet Volume 7.6 FL Neutrophils (%) (Auto) 69.2 % Lymphocytes (%) (Auto) 21.8 % Monocytes (%) (Auto) 8.0 % Eosinophils (%) (Auto) 0.6 % Basophils (%) (Auto) 0.4 % Neutrophils # (Auto) 7.2 TH/MM3 Lymphocytes # (Auto) 2.3 TH/MM3 Monocytes # (Auto) 0.8 TH/MM3 Eosinophils # (Auto) 0.1 TH/MM3 Basophils # (Auto) 0.0 TH/MM3 CBC Comment DIFF FINAL Differential Comment Blood Urea Nitrogen 12 MG/DL Creatinine 0.55 MG/DL Random Glucose 106 MG/DL Total Protein 7.5 GM/DL Albumin 3.9 GM/DL Calcium Level 8.9 MG/DL Alkaline Phosphatase 53 U/L Aspartate Amino Transf (AST/SGOT) 45 U/L Alanine Aminotransferase (ALT/SGPT) 21 U/L Total Bilirubin 0.8 MG/DL Sodium Level 139 MEQ/L Potassium Level 3.9 MEQ/L Chloride Level 108 MEQ/L Carbon Dioxide Level 22.1 MEQ/L Anion Gap 9 MEQ/L Estimat Glomerular Filtration Rate 121 ML/MIN Assessment and Plan Problem List: (1) Acute coronary syndrome ICD Codes: I24.9 - Acute ischemic heart disease, unspecified Status: Acute (2) Family history of premature CAD ICD Codes: Z82.49 - Family history of ischemic heart disease and other diseases of the circulatory system (3) Marijuana use ICD Codes: F12.90 - Cannabis use, unspecified, uncomplicated Assessment and Plan 1) CAD/NSTEMI s/p FREDY to LCX, FREDY to RCA ASA/Plavix/Statin Plan to add BB and DAVID-I Script for 1 year worth of Plavix given 2) EF 60%, trace MR 3) Cardiovascularly stable for discharge Chris Rojas DO Oct 12, 2017 13:42
--- NOTE | 2017-10-12 14:11 | HHI.DS ---
Discharge Summary Admission Date Oct 10, 2017 at 17:48 Discharge Date: Oct 12, 2017 Admitting Diagnosis Acute Coronary Syndrome (1) CAD (coronary artery disease) ICD Code: I25.10 - Atherosclerotic heart disease of [place] coronary artery without angina pectoris Diagnosis: Principal (2) Acute coronary syndrome ICD Code: I24.9 - Acute ischemic heart disease, unspecified Diagnosis: Principal Status: Acute Procedures cardiac cath Brief History - From Admission 42-year-old female with no significant past medical history presents to the emergency department for evaluation of chest pain. The patient reports that on Monday her pain began with bilateral back and breast pain. She reports that with hot showers and sleep the pain resolved however she woke up this morning feeling ill. She reports that she had chest pain and bilateral breast pain that continued to worsen throughout the day. She states the pain is 10/10 and describes it as a pressure that radiates down her left arm. In the emergency department, patient was found to have an elevated troponin with continued, active chest pain. She was seen by Dr. Valdivia from cardiology who took her for an urgent cardiac catheterization. At the time of her interview, the patient is status post catheter. She reports no chest pain. Denies any other associated symptoms such as nausea/vomiting or shortness of breath. CBC/BMP: 10/12/17 0515 10/12/17 0515 Significant Findings Laboratory Tests Test 10/10/17 14:25 10/10/17 16:35 10/11/17 05:29 10/12/17 05:15 Monocytes (%) (Auto) 8.6 % (0.0-8.0) 9.7 % (0.0-8.0) Activated Partial Thromboplast Time 31.3 SEC (24.3-30.1) Troponin I 0.22 NG/ML (0.02-0.05) 0.66 NG/ML (0.02-0.05) Aspartate Amino Transf (AST/SGOT) 45 U/L (15-37) Chloride Level 108 MEQ/L (98-107) Hospital Course Mrs. Hinkle is a 42-year-old female. She was admitted secondary to chest pain symptoms. She has a positive family history of cardiac disease with myocardial infarction in her father when he was 23. Acute coronary syndrome workup was provided and evidence for infarction was discovered. She had a heart catheter with 2 stents placed. She is doing well status post catheter without any evidence of arrhythmias. Appropriate treatments have been started as listed below. Cardiology has cleared patient for discharge today. Patient is medically stable for discharge discharge home. Pt Condition on Discharge: Stable Discharge Disposition: Discharge Home Discharge Time: <= 30 minutes Discharge Instructions DIET: Follow Instructions for: Heart Healthy Diet Activities you can perform: Regular-No Restrictions Follow up Referrals: Cardiology - 2 Weeks PCP Follow-up - 2 Weeks New Medications: Aspirin (Tgt Aspirin) 81 Mg Chw 81 MG PO DAILY for Blood Clot Prevention, #30 EA Atorvastatin (Atorvastatin) 80 Mg Tab 80 MG PO HS for Cholesterol Management, #30 TAB Clopidogrel (Plavix) 75 Mg Tab 75 MG PO DAILY for Blood Clot Prevention, #30 TAB Lisinopril (Lisinopril) 5 Mg Tab 5 MG PO DAILY for Blood Pressure Management, #30 TAB Metoprolol Tartrate (Metoprolol Tartrate) 25 Mg Tab 12.5 MG PO Q12HR for Blood Pressure Management, #60 TAB Bayron Miramontes MD Oct 12, 2017 14:11
--- NOTE | 2017-10-13 10:03 | MA ---
cc: CHRIS MOURA DO DATE 10/10/2017 PROCEDURE Left heart catheterization, coronary angiogram, moderate sedation 82 minutes, complex case, satnam drug-eluting stent (2.25 x 12) to the left circumflex, satnam drug-eluting stent (3 x 12) to RCA. PREPROCEDURE DIAGNOSIS NSTEMI, continual chest pain. POSTPROCEDURE DIAGNOSIS NSTEMI status post satnam drug-eluting stent (2.25 x 12) to the left circumflex, satnam drug-eluting stent (3 x 12) to RCA. MEDICATIONS 1. Versus 0.5 mg. 2. Fentanyl 25 mcg. 3. Verapamil 2.5 mg. 4. Nitro 200 mcg. 5. Heparin 83106 units. 6. Plavix 600 mg. CONTRAST USED 175 cc FLUOROSCOPY 24.3 minutes ANESTHESIA Moderate sedation 82 minutes ESTIMATED BLOOD LOSS 10 cc PROCEDURAL SUMMARY Sunni Hinkle is a pleasant 42-year-old female who originally presented to [facility] due to chest pain. Because of her continual chest pain and overall concerning story, it was felt that she should go to the laboratory tester urgently. The risks, benefits and alternatives were explained to her and she consented as such. She was brought to lab and prepped in the usual sterile fashion. He right radial artery was accessed using a modified Seldinger technique and placement of a 5/6 [place] slender sheath. This was easily aspirated and flushed. A JR-4 was advanced over a J-wire to the ascending aorta and across the aortic valve for measurement of left ventricular pressures. This was pulled back across the aortic valve showing no significant gradient of aortic stenosis. JR-4 was used for selective angiography of the right coronary artery system. This was exchanged out for a JL-3.5 which was used for selective angiography of the left coronary artery system. Please see notes below for intervention. FINDINGS Left main normal size vessel with 20% ostial stenosis. It bifurcates into an LAD and circumflex. LAD normal-size vessel with 30% disease in the proximal portion. Distally there is mild luminal irregularities with no significant disease. It gives off two small diagonals with no significant disease. Left circumflex is a [id number] sized vessel which gives off one early obtuse marginal which has an upper and lower branch. As the circumflex continues distally it becomes 100% occluded in the midportion. There is contrast hang up at this point concerning for relatively acute closure. RCA normal-size vessel with a 95% stenosis in the midportion. LVEDP 12. INTERVENTION Because of the contrast hang up in the left circumflex which is concerning for the culprit vessel, at this time EBU 3.5 guide catheter was engaged in the left main. The patient was given heparin as an anticoagulant. A BMW wire was advanced easily across the left circumflex and into the distal obtuse marginal. The lesion was dilated with a compliant balloon (2 x 10). This was then stented with an satnam drug-eluting stent (2.25 x 12). This was postdilated with a noncompliant balloon (2.25 x 8). Wire was pulled back, but I was concerned about the proximal extension of the stent and so BMW wire was then placed distally again and the stent was post dilated again with a noncompliant balloon (2.25 x 6). At this time, the patient continued to have chest pain and due to the significance of the disease in the RCA, I fell that it was reasonable to intervene. Guide was exchanged for a JR-4 guide. BMW was advanced into the distal portion of the RCA. The lesion was predilated with a compliant balloon (2 x 10). This was then stented with an satnam drug-eluting stent (3 x 12). This was postdilated with a noncompliant balloon (3 x 12). Final angiogram shows a well opposed stent but no perforations or dissections. Wire was removed. Guide was removed over a J-wire. Radial band was placed over the arteriotomy site for hemostasis. The patient was given 600 mg of Plavix. She left the laboratory tester cardiovascularly stable. IMPRESSION 1. NSTEMI status post satnam drug-eluting stent (2.25 x 12) to the left circumflex, satnam drug-eluting stent (3 x 12) to the RCA. 2. Chest pain concerning for coronary insufficiency. 3. Hyperlipidemia 4. Hypertension RECOMMENDATIONS 1. Ms. Hinkle underwent PCI as above and will be placed on aspirin and Plavix therapy. She will also be started on statin therapy. We will reevaluate her in the morning for placing her on beta chao and DAVID inhibitor therapy. 2. I plan for her to be in the hospital for 48 hours post NSTEMI. 3. We will check an echo to look at her overall left ventricular function, cardiac structure and possible valvopathy. Thank you for allowing me to see Sunni Hinkle. If there are any questions, please do not hesitate to call. Chris Moura DO VGP/DJL /9:21 PM /9:40 AM
== END 2017-10-12 14:08 | disposition home or self-care (01) | DRG 247 ==
LOC: NEPC 14:18 → NEDA 17:48 → HCIS 19:28
PROVIDERS: ADMIT Hospitalist; ATTEND Hospitalist
PROC: 027135Z Dilation of Coronary Artery, Two Arteries with Two Drug-eluting Intraluminal Devices, Percutaneous Approach (ICD-10-PCS; principal; 2017-10-10)
PROC: 4A023N7 Measurement of Cardiac Sampling and Pressure, Left Heart, Percutaneous Approach (ICD-10-PCS; 2017-10-10)
PROC: B2111ZZ Fluoroscopy of Multiple Coronary Arteries using Low Osmolar Contrast (ICD-10-PCS; 2017-10-10)
DX: I21.4 Non-ST elevation (NSTEMI) myocardial infarction (principal); I10 Essential (primary) hypertension; I25.10 Atherosclerotic heart disease of native coronary artery without angina pectoris; E78.5 Hyperlipidemia, unspecified; F12.90 Cannabis use, unspecified, uncomplicated; I25.2 Old myocardial infarction; Z82.49 Family history of ischemic heart disease and other diseases of the circulatory system
CPT/HCPCS: 71045; 71046; 80048; 80053; 82550; 83735; 84484; 84703; 85002; 85025; 85610; 85730; 92928; 92929; 93005; 93306; 93458; 96374; 99152; 99153; C1725; C1769; C1874; C1887; C1893; J1644; J2250; J2270; J2370; J2405; J3010; Q9967